=== PATIENT | male | born 1955 | race Caucasian/White ===

== ENCOUNTER 2021-02-06 14:05 | Inpatient (IN) ==
[2021-02-06] MEDS ORDERED: ASPIRIN CHEW 324 MG PO STA (14:27)
[2021-02-06] MEDS ORDERED: SODIUM CHLORIDE 0.9% 500 ML IV STA (14:27)
[2021-02-06] MEDS ORDERED: dilTIAZem HCl 5 MG/ML 5 ML VIAL IV STA ×2 (14:32→14:58)
--- NOTE | 2021-02-06 14:48 | Emergency Department Note ---
Impression & Plan Chest pain, Atrial fibrillation with rapid ventricular response, Abnormal EKG, Acute hypotension ED Provider Note NAME: ZACH TEMPLE AGE: 65 SEX: M : 1955 ARRIVES VIA: Walk-In INFORMANT: Patient, ED PROVIDER(S): Kemar Eastman DO CHIEF COMPLAINT: Chest pain HPI: The patient is a 65-year-old male who presented to the emergency department for an evaluation of chest pain. The patient localizes chest pain to his anter ior chest and into both arms. The patient denies having any shortness of breath. He does note lower extremity swelling but this is not new for him. He states that his symptoms began prior to arrival. He has a history of paroxysmal atrial fibrillation and felt that his heart was racing as well. He describes the pain as a pressure. He denies having any lower extremity pain. He does have no history of cough or recent fever. The patient's not been seen by his primary care physician for the symptoms. The patient has been compliant with all of his outpatient medications. He came directly to the emergency department and was not seen by provider prior to coming to the emergency department. ROS: See above HPI for pertinent positives & negatives. A total of 10 systems reviewed and were otherwise negative. PAST MEDICAL HISTORY: See Below PAST SURGICAL HISTORY: See Below FAMILY HISTORY: See Below SOCIAL HISTORY: See Below HOME MEDICATIONS: See Below ALLERGIES: See Below VITALS: See Below PHYSICAL EXAMINATION: GENERAL: The patient is awake and alert. The patient is somewhat anxious appearing but overall comfortable. EYES: The conjunctivae are clear. The pupils are round and reactive. EARS, NOSE, MOUTH AND THROAT: The nose is without any evidence of any deformity. NECK: The neck is nontender and supple. RESPIRATORY: Normal respiratory effort is noted there is no evidence of wheezing rhonchi or rales CARDIOVASCULAR: Tachycardic and irregular heart sounds were noted to auscultation. There is no definite murmur. GASTROINTESTINAL: The abdomen is soft. Abdomen is nontender. MUSCULOSKELETAL/EXTREMITIES: There is no evidence of gross deformity full range of motion is noted in the hips and shoulders. SKIN: Pedal edema was noted bilaterally. Skin was warm and dry. NEUROLOGIC: Patient is awake alert and oriented x3. MEDICAL DECISION MAKING: The patient is a 65-year-old male who presented to the emergency department for an evaluation of chest pain. The patient initially was found to have atrial fibrillation with RVR and ischemic changes on his EKG. The patient was treated with IV fluids as well as IV Cardizem. He was also given aspirin. The patient's rate continued to improve. When his rate improved his ischemic chest pain as well as his ischemic changes on his EKG significantly improved as well. The patient was pain-free on reevaluation. I discussed the patient's laboratory and radiographic studies with him. He was started on a Cardizem drip as well as heparin drip. I discussed his condition with the on-call [facility] broom machine operator as well as the on-call [facility] hospitalist. They have agreed to evaluate the patient for further management and disposition. The patient continued to remain pain-free. Triage Nursing notes reviewed. Prior medical records reviewed Vital Signs: reviewed and remarkable for hypotension and tachycardia. Differential diagnosis: Cardiac ischemia, aortic dissection, pulmonary embolism, pneumothorax, pneumonia, pericarditis, myocarditis, esophageal rupture, GERD, cholecystitis, pancreatitis, musculoskeletal, as well as other pathologies. ER treatment provided: See below Diagnostics interpreted by me: ECG: EKG was obtained in the emergency department. My interpretation is atrial fibrillation at 153 bpm. PVCs were noted. Inferior and lateral ST depressions were noted. This was compared to a tracing from June 262015. Atrial fibrillation as well as the ischemic changes are new compared to earlier tracing. A second EKG was obtained in the emergency department. My interpretation is atrial fibrillation with RVR at 112 bpm. There was no ectopy. Almost complete resolution of the previously noted ST segment depression was appreciated. Cardiac Monitoring: An order was placed for continuous cardiac monitoring. The monitor shows a rate of 75 bpm with atrial fibrillation rhythm. Laboratory studies: As stated above and show below. Imaging studies: See below Consultation(s): 1530: I discussed this case with Dr. Tobias who is on-call for the [facility] cardiology group. 1540: I discussed this case with [place] who is on-call for the [facility] hospitalist group. They will evaluate the patient in the emergency department. ED COURSE: 1500: The patient was reevaluated. Pulse rate had improved and the patient's pain is resolved. Procedures: none PDMP:reviewed and no issues Critical Care: I have personally spent greater than 45 minutes of critical care time in the direct management of this patient. This includes bedside care, interpretation o f diagnostic studies, and testing, discussion with consultants, patient, and family members, and other required patient management activities. This 45 minutes is in excess of all separately billable procedures. Past Med/Surg History Medical History Anxiety CAD (coronary artery disease) Diabetes mellitus, type 2 Diabetic peripheral neuropathy GERD (gastroesophageal reflux disease) Gout History of atrial fibrillation no longer has Hyperlipidemia Hypertension Myocardial Infarction 2009 Sleep apnea cpap Surgical History [place] [facility] [place] of cardiac radiofrequency ablation for A-fib History of heart artery stent --2009 History of repair of left rotator cuff History of total right hip replacement History of wisdom tooth extraction Family History Grandmother (Maternal) Family history of diabetes mellitus Other No family history of adverse response to anesthesia Social History Smoking Status: Former smoker Second Hand Exposure: Yes (family member smoked); Do You Dip or Chew Tobacco: Yes; Hx Alcohol Use: Yes (social) Alcohol type: hard liquor Hx Substance Use: No Preferred Language: Gibraltarian Communication Ability: Effective Back Pad Inspector Required: No Beliefs That Will Affect Care: None Current Living Situation: Spouse and Family Current Living Situation Comment: Lives with and son Other Information That Helps Us Care for You: No Feels Safe at Home: Yes Safety Concerns: Feels Safe At This Time Assistive Devices: CPAP and Glasses Allergies Allergies Allergy/AdvReac Type Severity Reaction Status Date / Time No Known Allergies Allergy Verified 02/06/21 15:23 Home Meds Home Medications Medication Instructions Recorded Confirmed alprazolam 0.5 mg tablet 0.5 mg PO HS PRN 12/12/18 02/06/21 aspirin 81 mg tablet,delayed 81 mg PO QAM 12/12/18 02/06/21 release atorvastatin 20 mg tablet 20 mg PO HS 12/12/18 02/06/21 cyanocobalamin (vitamin B-12) 500 500 mcg PO QAM 12/12/18 02/06/21 mcg lozenges (Vitamin B-12) lisinopril 10 mg tablet 10 mg PO BID 12/12/18 02/06/21 metoprolol succinate 50 mg 50 mg PO QAM 12/12/18 02/06/21 tablet,extended release 24 hr omeprazole 20 mg tablet,delayed 20 mg PO DAILY PRN 12/12/18 02/06/21 release glipizide 5 mg tablet 5 mg PO BID tab 04/29/20 02/06/21 metformin 500 mg tablet 500 mg PO BID tab 04/29/20 02/06/21 allopurinol 300 mg tablet 300 mg PO QAM 02/06/21 02/06/21 bee pollen 1 ea PO QDL 02/06/21 02/06/21 chlorthalidone 25 mg tablet 25 mg PO DAILY 02/06/21 02/06/21 dulaglutide 1.5 mg/0.5 mL 1.5 mg SUBCUT WK 02/06/21 02/06/21 subcutaneous pen injector (Trulicity) ezetimibe 10 mg tablet 10 mg PO HS 02/06/21 02/06/21 gabapentin 100 mg capsule 300 mg PO HS 02/06/21 02/06/21 ibuprofen 200 mg tablet (Advil) 600 mg PO Q6H PRN 02/06/21 02/06/21 pseudoephedrine-ibuprofen 30 2 cap PO DIRECTED PRN 02/06/21 02/06/21 mg-200 mg capsule (Advil Cold and Sinus) tamsulosin 0.4 mg capsule 0.4 mg PO HS 02/06/21 02/06/21 terazosin 5 mg capsule 10 mg PO HS 02/06/21 02/06/21 Results & Data (ED) Vital Signs Vital Signs - 24 hr 02/06/21 14:18 02/06/21 14:44 02/06/21 15:56 Temperature 36.5 C Temperature Source Oral Pulse Rate 136 H Pulse Rate [Finger] 127 H Pulse Rhythm Regular Pulse Strength Normal Respiratory Rate 24 24 Respiratory Effort / Characteristics Non-Labored Spontaneous Respiratory Depth Normal Respiratory Pattern Regular Blood Pressure 94/68 L Blood Pressure [Left Arm] 96/64 L Blood Pressure Mean 76 Blood Pressure Mean [Left Arm] 74 Blood Pressure Position Sitting Pulse Oximetry 97 95 97 Oxygen Delivery Method Room Air Room Air Room Air Sepsis Recent Fever Within 48 Hours No Sepsis New/Unexplained Change in Mental Status No Sepsis Action Taken by Nursing No Action Required 02/06/21 16:30 Temperature Temperature Source Pulse Rate Pulse Rate [Finger] 143 H Pulse Rhythm Pulse Strength Respiratory Rate 20 Respiratory Effort / Characteristics Respiratory Depth Respiratory Pattern Blood Pressure Blood Pressure [Left Arm] 87/70 L Blood Pressure Mean Blood Pressure Mean [Left Arm] 75 Blood Pressure Position Pulse Oximetry 97 Oxygen Delivery Method Room Air Sepsis Recent Fever Within 48 Hours Sepsis New/Unexplained Change in Mental Status Sepsis Action Taken by Long Term Medications Current Medication List: was personally reviewed by me Laboratory Data Attestation: I reviewed the patient's lab results. Result diagrams: 02/06/21 14:34 02/06/21 14:34 Lab Results 02/06/21 02/06/21 02/06/21 Range/Units 14:34 14:34 14:34 WBC 11.21 H (4.8-10.8) K/uL RBC 4.68 L (4.7-6.1) M/uL Hgb 14.1 (14.0-18.0) g/dL Hct 41.9 L (42-52) % MCV 89.5 (80-100) fL MCH 30.1 (25-34) pg MCHC 33.7 (32-36) g/dL RDW Std Deviation 43.1 (36.4-46.3) fL RDW Coeff of Se[place]our 13.2 (11.5-14.5) % Plt Count 347 (130-400) K/uL MPV 10.0 (7.4-10.4) fL Immature Gran % (Auto) 0.5 % Neut % (Auto) 67.2 % Lymph % (Auto) 21.5 % Harrison % (Auto) 5.2 % Eos % (Auto) 5.0 % Baso % (Auto) 0.6 % Neut # (Auto) 7.53 H (1.4-6.5) K/uL Lymph # (Auto) 2.41 (1.2-3.4) K/uL Harrison # (Auto) 0.58 (0.11-0.59) K/uL Eos # (Auto) 0.56 H (0-0.5) K/uL Baso # (Auto) 0.07 (0-0.2) K/uL Immature Gran # (Auto) 0.06 H (0.00-0.02) K/uL PT 9.9 (9.0-12.0) Seconds INR 1.0 (0.9-1.1) APTT 27.3 (21.0-31.0) Seconds PTT Ratio 1.0 Sodium 134 L (136-145) mmol/L Potassium 4.5 (3.5-5.1) mmol/L Chloride 100 (98-107) mmol/L Carbon Dioxide 26 (21-32) mmol/L Anion Gap 8.0 (3-11) BUN 22 H (7-18) mg/dl Creatinine 1.13 (0.6-1.4) mg/dl Est Cr Clr Drug Dosing 84.8 ml/min Est GFR ( Amer) 79.2 ml/min Est GFR (Non-Af Amer) 68.3 ml/min BUN/Creatinine Ratio 19.0 (10-20) Glucose 263 H (70-99) mg/dl Calcium 9.0 (8.5-10.1) mg/dl Magnesium 1.5 L (1.8-2.4) mg/dl Total Bilirubin 1.0 (0.2-1) mg/dl AST 31 (15-37) U/L ALT 39 (12-78) U/L Alkaline Phosphatase 89 (45-117) U/L Troponin I < 0.015 (0-0.045) ng/ml Total Protein 7.4 (6.4-8.2) gm/dl Albumin 3.8 (3.4-5.0) gm/dl Globulin 3.6 (2.5-4.0) gm/dl Albumin/Globulin Ratio 1.1 (0.9-2) Lipase 161 (73-393) U/L TSH 2.310 (0.300-4.500) uIu/ml Specimen Hemolysis COVID-19 Eval Order SARS-CoV-2 (PCR) (Negative) 02/06/21 02/06/21 Range/Units 14:44 14:44 WBC (4.8-10.8) K/uL RBC (4.7-6.1) M/uL Hgb (14.0-18.0) g/dL Hct (42-52) % MCV (80-100) fL MCH (25-34) pg MCHC (32-36) g/dL RDW Std Deviation (36.4-46.3) fL RDW Coeff of Seymour (11.5-14.5) % Plt Count (130-400) K/uL MPV (7.4-10.4) fL Immature Gran % (Auto) % Neut % (Auto) % Lymph % (Auto) % Harrison % (Auto) % Eos % (Auto) % Baso % (Auto) % Neut # (Auto) (1.4-6.5) K/uL Lymph # (Auto) (1.2-3.4) K/uL Harrison # (Auto) (0.11-0.59) K/uL Eos # (Auto) (0-0.5) K/uL Baso # (Auto) (0-0.2) K/uL Immature Gran # (Auto) (0.00-0.02) K/uL PT (9.0-12.0) Seconds INR (0.9-1.1) APTT (21.0-31.0) Seconds PTT Ratio Sodium (136-145) mmol/L Potassium (3.5-5.1) mmol/L Chloride (98-107) mmol/L Carbon Dioxide (21-32) mmol/L Anion Gap (3-11) BUN (7-18) mg/dl Creatinine (0.6-1.4) mg/dl Est Cr Clr Drug Dosing ml/min Est GFR ( Amer) ml/min Est GFR (Non-Af Amer) ml/min BUN/Creatinine Ratio (10-20) Glucose (70-99) mg/dl Calcium (8.5-10.1) mg/dl Magnesium (1.8-2.4) mg/dl Total Bilirubin (0.2-1) mg/dl AST (15-37) U/L ALT (12-78) U/L Alkaline Phosphatase (45-117) U/L Troponin I (0-0.045) ng/ml Total Protein (6.4-8.2) gm/dl Albumin (3.4-5.0) gm/dl Globulin (2.5-4.0) gm/dl Albumin/Globulin Ratio (0.9-2) Lipase (73-393) U/L TSH (0.300-4.500) uIu/ml Specimen Hemolysis COVID-19 Eval Order Covid19 at [facility] SARS-CoV-2 (PCR) NEGATIVE (Negative) Administered Medications Atorvastatin Calcium (Atorvastatin 20 Mg Tab) 20 mg PO HS [place] Stop: 03/08/21 20:59 Last Admin: 02/06/21 21:40 Dose: 20 mg Documented by: [id number] Ezetimibe (Ezetimibe 10 Mg Tablet) 10 mg PO HS [place] Stop: 03/08/21 20:59 Last Admin: 02/06/21 21:40 Dose: 10 mg Documented by: [id number] Gabapentin (Gabapentin 300 Mg Cap) 300 mg PO HS [place] Stop: 03/08/21 20:59 Last Admin: 02/06/21 21:40 Dose: 300 mg Documented by: [id number] Diltiazem HCl 125 mg/ Dextrose 125 mls @ 0 mls/hr IV .Q0M [place]; Protocol Stop: 03/08/21 15:29 Last Titration: 02/06/21 19:09 Dose: 0 mg/hr, 0 mls/hr Documented by: [id number] Cosigned by: [id number] Admin: 02/06/21 16:26 Dose: 5 mg/hr, 5 mls/hr Documented by: [id number] Cosigned by: [id number] Heparin Sodium/Dextrose (Heparin Sodium/Dextrose) 25,000 units in 500 mls @ 33 mls/hr IV .[id number] [place]; Protocol Stop: 03/08/21 15:59 Last Titration: 02/06/21 19:09 Dose: 1,650 units/hr, 33 mls/hr Documented by: [id number] Cosigned by: [id number] Admin: 02/06/21 15:51 Dose: 1,650 units/hr, 33 mls/hr Documented by: [id number] Cosigned by: [id number] Insulin Aspart (Insulin Aspart 100 Units/Ml 3 Ml Pen) 0 units SC ACHS [place] Stop: 03/08/21 20:59 Last Admin: 02/06/21 21:41 Dose: 7 units Documented by: [id number] Cosigned by: [id number] Tamsulosin HCl (Tamsulosin Hcl 0.4 Mg Cap) 0.4 mg PO HS [place] Stop: 03/08/21 20:59 Last Admin: 02/06/21 21:40 Dose: 0.4 mg Documented by: [id number] Terazosin HCl (Terazosin Hcl 5 Mg Cap) 10 mg PO HS [place] Stop: 03/08/21 20:59 Last Admin: 02/06/21 21:40 Dose: 10 mg Documented by: [id number] Discontinued Medications Aspirin (Aspirin Chew 324 Mg) 324 mg PO NOW STA Stop: 02/06/21 14:28 Last Admin: 02/06/21 14:39 Dose: 324 mg Documented by: [id number] Diltiazem HCl (Diltiazem Hcl 5 Mg/Ml 5 Ml Vial) 10 mg IV NOW STA Stop: 02/06/21 14:33 Last Admin: 02/06/21 14:40 Dose: 10 mg Documented by: [id number] Cosigned by: [id number] Diltiazem HCl (Diltiazem Hcl 5 Mg/Ml 5 Ml Vial) 10 mg IV NOW STA Stop: 02/06/21 14:59 Last Admin: 02/06/21 15:10 Dose: 10 mg Documented by: [id number] Cosigned by: [id number] Heparin Sodium (Porcine) (Heparin Sod (Porcine) 1000 Unit/Ml) 1 units IV NOW ONE Stop: 02/06/21 15:48 Last Admin: 02/06/21 15:51 Dose: 5,000 units Documented by: [id number] Cosigned by: [id number] Heparin Sodium/Dextrose (Heparin Iv Adult Wt-Based Standard With Bolus Protocol) 1 ea IV NOW STA; Protocol Stop: 02/06/21 15:33 Last Admin: 02/06/21 18:47 Dose: Not Given Documented by: [id number] Sodium Chloride (Nss) 500 mls @ 999 mls/hr IV .Q31M STA Stop: 02/06/21 14:57 Last Infusion: 02/06/21 15:11 Dose: 0 mls/hr Documented by: [id number] Admin: 02/06/21 14:40 Dose: 999 mls/hr Documented by: [id number] Sodium Chloride (Nss) 500 mls @ 999 mls/hr IV .Q31M ONE Stop: 02/06/21 15:33 Last Infusion: 02/06/21 15:40 Dose: 0 mls/hr Documented by: [id number] Admin: 02/06/21 15:09 Dose: 999 mls/hr Documented by: [id number] Magnesium Sulfate/Dextrose (Magnesium Sulfate / D5w) 1 gm in 100 mls @ 100 mls/hr IV Q1H [place] Stop: 02/06/21 17:27 Last Infusion: 02/06/21 18:46 Dose: 0 mls/hr Documented by: [id number] Admin: 02/06/21 16:49 Dose: 100 mls/hr Documented by: [id number] Infusion: 02/06/21 16:49 Dose: 0 mls/hr Documented by: [id number] Admin: 02/06/21 15:43 Dose: 100 mls/hr Documented by: [id number] Sodium Chloride (Nss 1000ml) 500 mls @ 999 mls/hr IV .Q31M ONE Stop: 02/06/21 16:00 Last Infusion: 02/06/21 16:15 Dose: 0 mls/hr Documented by: [id number] Admin: 02/06/21 15:44 Dose: 999 mls/hr Documented by: [id number] Miscellaneous (Stat Iv Infusion Titration Per Protocol) 1 ea N/A NOW STA Stop: 02/06/21 15:29 Last Admin: 02/06/21 18:47 Dose: Not Given Documented by: [id number] Imaging Data Radiologist's Impression: Chest X-Ray 02/06/21 14:27 XR chest 1V portable HISTORY: 65 years-old Male Chest Pain . Acute atypical chest pain COMPARISON: Chest radiograph 06/26/2015 TECHNIQUE: AP view of the chest FINDINGS: Cardiomediastinal and hilar silhouettes are within normal limits. No pneumothorax, pleural effusion, airspace consolidation or overt pulmonary edema. Degenerative changes of the shoulders and spine. IMPRESSION: No acute process. ACT 112: Negative or not required by law. The above report was generated using voice recognition software. It may contain grammatical, syntax or spelling errors. Electronically signed by: Zach Mendosa M.D. 02/06/2021 2:52 PM Discharge Plan Visit Data Chief Complaint: Chest Pain Stated Complaint: CHEST PAIN ED Provider: Kemar Eastman Discharge Problem: Chest pain, Atrial fibrillation with rapid ventricular response, Abnormal EKG, Acute hypotension Patient Disposition: Admitted As Inpatient Condition: Good Discharge Instructions Interventions: ED Discharge Assessment Last Done: 02/06/21 17:49 Discharge Problem: Chest pain Qualifiers: Chest pain type: unspecified Qualified Code(s): R07.9 - Chest pain, unspecified
--- NOTE | 2021-02-06 14:53 | XRay Report ---
XR chest 1V portable HISTORY: 65 years-old Male Chest Pain . Acute atypical chest pain COMPARISON: Chest radiograph 06/26/2015 TECHNIQUE: AP view of the chest FINDINGS: Cardiomediastinal and hilar silhouettes are within normal limits. No pneumothorax, pleural effusion, airspace consolidation or overt pulmonary edema. Degenerative changes of the shoulders and spine. IMPRESSION: No acute process. ACT 112: Negative or not required by law. The above report was generated using voice recognition software. It may contain grammatical, syntax o r spelling errors. Electronically signed by: Zach Mendosa M.D. 02/06/2021 2:52 PM
[2021-02-06 15:02] LABS: Basophils # (auto) 0.07 K/uL (0-0.2); Basophils % (auto) 0.6 %; Eosinophils # (auto) 0.56 K/uL (0-0.5); Hematocrit (blood only) 41.9 % (42-52); Hemoglobin 14.1 g/dL (14.0-18.0); Immature Granulocytes # (auto) 0.06 K/uL (0.00-0.02); Immature Granulocytes % (auto) 0.5 %; Lymphocytes # (auto) 2.41 K/uL (1.2-3.4); Lymphocytes % (auto) 21.5 %; Mean Corpuscular Hemoglobin 30.1 pg (25-34); Mean Corpuscular Hgb Conc 33.7 g/dL (32-36); Mean Corpuscular Volume 89.5 fL (80-100); Monocytes # (auto) 0.58 K/uL (0.11-0.59); Monocytes % (auto) 5.2 %; Neutrophils # (auto) 7.53 K/uL (1.4-6.5); Neutrophils % (auto) 67.2 %; Platelet Count 347 K/uL (130-400); RDW Coefficient of Variation 13.2 % (11.5-14.5); RDW Standard Deviation 43.1 fL (36.4-46.3); Red Blood Count 4.68 M/uL (4.7-6.1); White Blood Count 11.21 K/uL (4.8-10.8)
[2021-02-06] MEDS ORDERED: SODIUM CHLORIDE 0.9% 500 ML IV ONE (15:03)
[2021-02-06 15:09] LABS: Partial Thromboplastin Time 27.3 Seconds (21.0-31.0); Prothrombin Time 9.9 Seconds (9.0-12.0)
[2021-02-06 15:18] LABS: Alanine Aminotransferase 39 U/L (12-78); Albumin Level 3.8 gm/dl (3.4-5.0); Aspartate Aminotransferase 31 U/L (15-37); Blood Urea Nitrogen 22 mg/dl (7-18); Carbon Dioxide 26 mmol/L (21-32); Chloride 100 mmol/L (98-107); Creatinine Clr Calc Pharmacy 84.8 ml/min; Est GFR (African American) 79.2 ml/min; Est GFR (Non-African American) 68.3 ml/min; Glucose 263 mg/dl (70-99); Lipase 161 U/L (73-393); Magnesium 1.5 mg/dl (1.8-2.4); Potassium 4.5 mmol/L (3.5-5.1); Sodium 134 mmol/L (136-145)
[2021-02-06 15:28] LABS: Albumin Globulin Ratio 1.1 (0.9-2); Alkaline Phosphatase 89 U/L (45-117); Globulin 3.6 gm/dl (2.5-4.0); Total Protein 7.4 gm/dl (6.4-8.2); Troponin I < 0.015 ng/ml (0-0.045)
[2021-02-06] MEDS ORDERED: STAT IV Infusion **Titration per Protocol STA (15:28)
[2021-02-06] MEDS ORDERED: SODIUM CHLORIDE 0.9% 1000ML 500 ML IV ONE (15:30)
[2021-02-06] MEDS ORDERED: dilTIAZem HCL 125 MG in DEXTROSE 5% 100 ML IV SCH (15:30)
[2021-02-06] MEDS ORDERED: Heparin IV Adult Wt-Based Standard WITH Bolus Protocol IV STA (15:32)
[2021-02-06] MEDS: MAGNESIUM SULFATE / D5W 1 GM/100 ML BAG IV SCH ×2 (15:43→16:49)
[2021-02-06] MEDS ORDERED: HEPARIN SOD (PORCINE) 1000 UNIT/ML IV ONE (15:47)
[2021-02-06] MEDS: HEPARIN SODIUM/DEXTROSE 25,000 UNITS/500 ML BAG IV SCH (15:51)
[2021-02-06] MEDS ORDERED: GLUCAGON FOR INJ 1 MG VIAL SQ PRN (16:54)
[2021-02-06] MEDS ORDERED: GLUCOSE 40% GEL 15 GM TUBE PO PRN (16:54)
[2021-02-06] MEDS ORDERED: CARBOHYDRATES FOR HYPOGLYCEMIA PO PRN (16:54)
[2021-02-06] MEDS ORDERED: GLUCOSE 10 TABS/TUBE PO PRN (16:54)
[2021-02-06] MEDS ORDERED: DEXTROSE 50% 50 ML SYRINGE IV PRN (16:54)
--- NOTE | 2021-02-06 18:05 | History & Physical Report ---
Date of Service February 06, 2021 Assessment & Plan (1) Chest pain: Plan: Likely due to transient ischemia related to afib with RVR - symptoms resolved with improvement in rate - Monitor on telemetry - repeat EKG in AM and prn for recurrent CP - Trend troponin - Cardio consult (2) Atrial fibrillation with rapid ventricular response: Plan: - Continue cardizem gtt for now but will need to continue to monitor BP closely - may need to consider alternative for rate control - Heparin gtt - Consult cardiology for additional recommendations for rate control (3) GERD (gastroesophageal reflux disease): Plan: On PPI PRN outpatient - will dose daily while admitted (4) Sleep apnea: Plan: to bring in CPAP from home for pt to use (5) DM type 2 (diabetes mellitus, type 2): Plan: - Hold outpatient meds - start insulin sliding scale - Diabetic diet - Accuchecks ACHS - A1c in AM (6) Dyslipidemia: Plan: - Continue statin and Zetia (7) Hypertension: Plan: See plan for #2 - current BP is low on cardizem gtt so will hold chlorthalidone and lisinopril (8) Diabetic peripheral neuropathy: Plan: - Continue gabapentin (9) CAD (coronary artery disease): Plan: See plan for #1 Plan: Pt seen and reviewed with attending physician, Dr. Mark. Plan of care discuss ed and as outlined above. Please see his note for additional information. Pt's was updated at the bedside. Both the pt and his had multiple questions regarding the plan of care, all of which were answered to their satisfaction. Code Status: Full Code DVT Prophylaxis: on heparin gtt for atrial fibrillation Surya Galan PA-C History of Present Illness Chief Complaint: Chest pain Primary Care Provider: Rudy Handy MD This is a 65 y/o male with a PMH of atrial fibrillation s/p ablation in 2016, CAD w/ hx of GA in 2010, FAUSTO on CPAP, dyslipidemia, GERD, HTN, DM2 with associated peripheral neuropathy, gout, and BPH who presented to the ED today with chest pain. He reports that when he woke up today he felt perfectly fine, went to work and worked all morning, then went to [employer] for lunch. After eating, he develop substernal chest pressure with associated bilateral arm achiness. Associated extreme fatigue and diaphoresis but denies shortness of breath, palpitations, or dizziness. He tried taking nitro x 2 (he does report that they were 6 years old) but noted no relief of symptoms within about 20 minutes so he decided to come to the ED for evaluation. He had similar arm achiness but not as severe with his first GA. Prior symptoms of afib with RVR with always palpitations - he denies having chest pressure like this previously. In the ED, he was given cardizem and ultimately started on a cardizem gtt with improvement in the rate. Once the rate improved, he noted complete resolution of the chest pressure and arm achiness. Currently, he is feeling well on the cardizem gtt. Allergies Allergy/AdvReac Type Severity Reaction Status Date / Time No Known Allergies Allergy Verified 02/06/21 15:23 Home Medications Medication Instructions Recorded Confirmed Type alprazolam 0.5 mg tablet 0.5 mg PO HS PRN 12/12/18 02/06/21 History aspirin 81 mg tablet,delayed 81 mg PO QAM 12/12/18 02/06/21 History release atorvastatin 20 mg tablet 20 mg PO HS 12/12/18 02/06/21 History cyanocobalamin (vitamin B-12) 500 500 mcg PO QAM 12/12/18 02/06/21 History mcg lozenges (Vitamin B-12) lisinopril 10 mg tablet 10 mg PO BID 12/12/18 02/06/21 History metoprolol succinate 50 mg 50 mg PO QAM 12/12/18 02/06/21 History tablet,extended release 24 hr omeprazole 20 mg tablet,delayed 20 mg PO DAILY PRN 12/12/18 02/06/21 History release glipizide 5 mg tablet 5 mg PO BID tab 04/29/20 02/06/21 History metformin 500 mg tablet 500 mg PO BID tab 04/29/20 02/06/21 History allopurinol 300 mg tablet 300 mg PO QAM 02/06/21 02/06/21 History bee pollen 1 ea PO QDL 02/06/21 02/06/21 History chlorthalidone 25 mg tablet 25 mg PO DAILY 02/06/21 02/06/21 History dulaglutide 1.5 mg/0.5 mL 1.5 mg SUBCUT WK 02/06/21 02/06/21 History subcutaneous pen injector (Trulicity) ezetimibe 10 mg tablet 10 mg PO HS 02/06/21 02/06/21 History gabapentin 100 mg capsule 300 mg PO HS 02/06/21 02/06/21 History ibuprofen 200 mg tablet (Advil) 600 mg PO Q6H PRN 02/06/21 02/06/21 History pseudoephedrine-ibuprofen 30 2 cap PO DIRECTED PRN 02/06/21 02/06/21 History mg-200 mg capsule (Advil Cold and Sinus) tamsulosin 0.4 mg capsule 0.4 mg PO HS 02/06/21 02/06/21 History terazosin 5 mg capsule 10 mg PO HS 02/06/21 02/06/21 History Past Med/Surg History Medical History Anxiety CAD (coronary artery disease) Diabetes mellitus, type 2 Diabetic peripheral neuropathy GERD (gastroesophageal reflux disease) Gout History of atrial fibrillation no longer has Hyperlipidemia Hypertension Myocardial Infarction 2009 Sleep apnea cpap Surgical History [place] [facility] [place] of cardiac radiofrequency ablation for A-fib History of heart artery stent --2009 History of repair of left rotator cuff History of total right hip replacement History of wisdom tooth extraction Family History Grandmother (Maternal) Family history of diabetes mellitus Other No family history of adverse response to anesthesia Social History Smoking Status: Former smoker Second Hand Exposure: Yes (family member smoked); Do You Dip or Chew Tobacco: Yes; Hx Alcohol Use: Yes (social EtOH and red wine) Alcohol type: hard liquor Hx Substance Use: No Preferred Language: Bolivian Communication Ability: Effective Tax Services Professional Required: No Beliefs That Will Affect Care: None Current Living Situation: Spouse and Family Current Living Situation Comment: Lives with and son Feels Safe at Home: Yes Assistive Devices: CPAP, Glasses and Hearing Aid - Bilateral Review of Systems Review of Systems: All systems reviewed & are unremarkable except as noted in HPI & below Constitutional: + sweats and + fatigue; no fever and no chills Eyes: no diplopia Ear, Nose, Mouth, Throat: no nasal congestion, no nasal discharge, no sore throat and no dysphagia Respiratory: no cough, no dyspnea and no wheezing Cardiovascular: as per Subjective / HPI Gastrointestinal: + diarrhea/loose stools (recent stomach bug ~10 days ago - symptoms now resolved); no abdominal pain, no nausea and no vomiting Genitourinary: no dysuria or no hematuria Musculoskeletal: no back pain, no neck pain and no muscle weakness Integumentary: no rash and no skin ulcer Neurologic: no seizure-like activity, no dizziness, no syncope, no headache(s) and no confusion Psychiatric: no depression and no anxiety Physical Exam Constitutional: WD/WN, vitals as above Eyes: + anicteric sclerae Neck: trachea midline Respiratory: no respiratory distress and does not use accessory muscles Auscultation: lungs clear to auscultation bilaterally; no rales, no rhonchi and no wheezes Cardiovascular: Rate/Rhythm: + tachycardic and + irregularly irregular Vessels: dorsalis pedis pulses present and radial pulses present Extremities: + edema (trace to 1+ LE edema) Gastrointestinal (Abdomen): Inspection/Auscultation: normal bowel sounds; abdomen not distended Percussion/Palpation: abdomen soft; abdomen nontender Musculoskeletal: Head/Neck/Chest: normocephalic, head atraumatic and neck supple Skin: normal turgor; no jaundice Neurologic: moves all extremities; no focal motor deficits and not confused Psychiatric: A+Ox3, euthymic affect Results & Data Results & Data ([facility]) Vital Signs (Past 12 Hours) Vital Signs Temp Pulse Pulse Resp BP BP Pulse Ox 02/06/21 17:01 126 H 20 92/63 L 97 02/06/21 16:30 143 H 20 87/70 L 97 02/06/21 15:56 127 H 24 96/64 L 97 02/06/21 14:44 95 02/06/21 14:18 36.5 C 136 H 24 94/68 L 97 Laboratory Results Laboratory Results - last 24 hr 02/06/21 02/06/21 02/06/21 14:34 14:34 14:34 WBC 11.21 H RBC 4.68 L Hgb 14.1 Hct 41.9 L MCV 89.5 MCH 30.1 MCHC 33.7 RDW Std Deviation 43.1 RDW Coeff of [place] 13.2 Plt Count 347 MPV 10.0 Immature Gran % (Auto) 0.5 Neut % (Auto) 67.2 Lymph % (Auto) 21.5 [place]in[place] % (Auto) 5.2 Eos % (Auto) 5.0 Baso % (Auto) 0.6 Neut # (Auto) 7.53 H Lymph # (Auto) 2.41 [place]inole # (Auto) 0.58 Eos # (Auto) 0.56 H Baso # (Auto) 0.07 Immature Gran # (Auto) 0.06 H PT 9.9 INR 1.0 APTT 27.3 PTT Ratio 1.0 Sodium 134 L Potassium 4.5 Chloride 100 Carbon Dioxide 26 Anion Gap 8.0 BUN 22 H Creatinine 1.13 Est Cr Clr Drug Dosing 84.8 Est GFR ( Amer) 79.2 Est GFR (Non-Af Amer) 68.3 BUN/Creatinine Ratio 19.0 Glucose 263 H Calcium 9.0 Magnesium 1.5 L Total Bilirubin 1.0 AST 31 ALT 39 Alkaline Phosphatase 89 Troponin I < 0.015 Total Protein 7.4 Albumin 3.8 Globulin 3.6 Albumin/Globulin Ratio 1.1 Lipase 161 TSH 2.310 Specimen Hemolysis COVID-19 Eval Order SARS-CoV-2 (PCR) 02/06/21 02/06/21 14:44 14:44 WBC RBC Hgb Hct MCV MCH MCHC RDW Std Deviation RDW Coeff of Seymour Plt Count MPV Immature Gran % (Auto) Neut % (Auto) Lymph % (Auto) Seminole % (Auto) Eos % (Auto) Baso % (Auto) Neut # (Auto) Lymph # (Auto) [place]in[place] # (Auto) Eos # (Auto) Baso # (Auto) Immature Gran # (Auto) PT INR APTT PTT Ratio Sodium Potassium Chloride Carbon Dioxide Anion Gap BUN Creatinine Est Cr Clr Drug Dosing Est GFR ( Amer) Est GFR (Non-Af Amer) BUN/Creatinine Ratio Glucose Calcium Magnesium Total Bilirubin AST ALT Alkaline Phosphatase Troponin I Total Protein Albumin Globulin Albumin/Globulin Ratio Lipase TSH Specimen Hemolysis COVID-19 Eval Order Covid19 at [facility] SARS-CoV-2 (PCR) NEGATIVE Diagnostic Findings Chest X-ray 02/06/21 - IMPRESSION: No acute process. Medications Administered Diltiazem HCl 125 mg/ Dextrose 125 mls @ 5 mls/hr IV .Q24H [place]; Protocol Stop: 03/08/21 15:29 Last Admin: 02/06/21 16:26 Dose: 5 mg/hr, 5 mls/hr Documented by: [id number] Cosigned by: [id number] Heparin Sodium/Dextrose (Heparin Sodium/Dextrose) 25,000 units in 500 mls @ 33 mls/hr IV .[id number] [facility]; Protocol Stop: 03/08/21 15:59 Last Admin: 02/06/21 15:51 Dose: 1,650 units/hr, 33 mls/hr Documented by: [id number] Cosigned by: [id number] Discontinued Medications Aspirin (Aspirin Chew 324 Mg) 324 mg PO NOW STA Stop: 02/06/21 14:28 Last Admin: 02/06/21 14:39 Dose: 324 mg Documented by: [id number] Diltiazem HCl (Diltiazem Hcl 5 Mg/Ml 5 Ml Vial) 10 mg IV NOW STA Stop: 02/06/21 14:33 Last Admin: 02/06/21 14:40 Dose: 10 mg Documented by: [id number] Cosigned by: [id number] Diltiazem HCl (Diltiazem Hcl 5 Mg/Ml 5 Ml Vial) 10 mg IV NOW STA Stop: 02/06/21 14:59 Last Admin: 02/06/21 15:10 Dose: 10 mg Documented by: [id number] Cosigned by: [id number] Heparin Sodium (Porcine) (Heparin Sod (Porcine) 1000 Unit/Ml) 1 units IV NOW ONE Stop: 02/06/21 15:48 Last Admin: 02/06/21 15:51 Dose: 5,000 units Documented by: [id number] Cosigned by: [id number] Sodium Chloride (Nss) 500 mls @ 999 mls/hr IV .Q31M STA Stop: 02/06/21 14:57 Last Infusion: 02/06/21 15:11 Dose: 0 mls/hr Documented by: [id number] Admin: 02/06/21 14:40 Dose: 999 mls/hr Documented by: [id number] Sodium Chloride (Nss) 500 mls @ 999 mls/hr IV .Q31M ONE Stop: 02/06/21 15:33 Last Infusion: 02/06/21 15:40 Dose: 0 mls/hr Documented by: [id number] Admin: 02/06/21 15:09 Dose: 999 mls/hr Documented by: [id number] Magnesium Sulfate/Dextrose (Magnesium Sulfate / D5w) 1 gm in 100 mls @ 100 mls/hr IV Q1H [place] Stop: 02/06/21 17:27 Last Admin: 02/06/21 16:49 Dose: 100 mls/hr Documented by: [id number] Infusion: 02/06/21 16:49 Dose: 0 mls/hr Documented by: [id number] Admin: 02/06/21 15:43 Dose: 100 mls/hr Documented by: [id number] Sodium Chloride (Nss 1000ml) 500 mls @ 999 mls/hr IV .Q31M ONE Stop: 02/06/21 16:00 Last Infusion: 02/06/21 16:15 Dose: 0 mls/hr Documented by: [id number] Admin: 02/06/21 15:44 Dose: 999 mls/hr Documented by: [id number] Code Status & VTE Plan VTE Prophylaxis Plan VTE Prophylaxis will be ordered: Yes Supervising Physician Co-Signing Physician Notes 65-year-old gentleman with PMH of PAF s/p PV isolation cryoablation, dyslipidemia with statin intolerance, extensive cardiac history status post a stent, HTN, HLD, GERD on omeprazole, DM type II, gout on allopurinol came in for chest pain that started around 12:30 PM, 01/05, pressure like, radiation to bilateral arms, no radiation to back, abrupt onset at rest. In the ED, he was found in A. fib with RVR [153 bpm] associated with ST depression in anterior leads and T wave inversion in lateral leads. Per patient, this is his first A. fib after ablation in around . Cardiology was consulted. Troponin and CRP negative. Magnesium 1.5. Will be managed in the floor for the following #. A. fib with RVR: Heparin and diltiazem drip; bp low and rate still in 130s might need switch to amio; reached out to Card, awaiting rec. get ECHO updated; TSH wnl. #. Extensive CAD: 09/25/2020 ECHO -EF 60%, minimum concentric LVH, grade 1 diastolic dysfunction. #. Chest pain: trend trops, EKG in AM #. Diabetes type 2: Hold oral agents, SSI with glycemic consult. #. Low blood pressure: Expect to improve with improvement of A. fib RVR; HTN meds with holding parameter. Patient has mild elevation in WBC likely secondary to acute distress. Monitor daily CBC and BMP and magnesium. Upon examination: GENERAL: Alert and oriented x3. NAD, on RA. HEENT: No pallor, no icterus. Pupils equal, round and reactive to light. Oral mucosa moist. NECK: No JVD, no neck masses. HEART: S1 and S2 heard. Afib w/ RVR with rates in 110-130s at bedside RESPIRATORY SYSTEM: Normal AP diameter. No accessory muscle use. No wheezing, no crackles. ABDOMEN: Soft, bowel sounds present, nontender, no distention. CENTRAL NERVOUS SYSTEM: Alert and oriented x3. No facial droop. Speech is clear. Obeys simple commands. Moves extremities. EXTREMITIES: 1+ edema, no erythema seen. I have seen and examined the patient and have discussed the case with the provider above. I agree with the assessment and plan as stated.
[2021-02-06] MEDS ORDERED: ALPRAZolam 0.5 MG TABLET PO PRN (18:17)
[2021-02-06] MEDS ORDERED: METOPROLOL TARTRATE 1 MG/ML VIAL IV STA (18:27)
[2021-02-06] MEDS ORDERED: ATORVASTATIN 20 MG TAB PO SCH (21:00)
[2021-02-06] MEDS ORDERED: TERAZOSIN HCL 5 MG CAP PO SCH (21:00)
[2021-02-06] MEDS ORDERED: EZETIMIBE 10 MG TABLET PO SCH (21:00)
[2021-02-06] MEDS ORDERED: GABAPENTIN 300 MG CAP PO SCH (21:00)
[2021-02-06] MEDS ORDERED: TAMSULOSIN HCL 0.4 MG CAP PO SCH (21:00)
[2021-02-06] MEDS: INSULIN ASPART 100 UNITS/ML 3 ML PEN SC SCH (21:41)
[2021-02-06 22:18] LABS: Magnesium 2.1 mg/dl (1.8-2.4); Partial Thromboplastin Ratio 1.8; Partial Thromboplastin Time 46.4 Seconds (21.0-31.0); Troponin I 0.827 ng/ml (0-0.045)
[2021-02-06] MEDS ORDERED: SODIUM CHLORIDE 0.9% 1000ML 1,000 ML IV ONE (22:39)
[2021-02-07] MEDS: HEPARIN SODIUM/DEXTROSE 25,000 UNITS/500 ML BAG IV SCH (06:06)
[2021-02-07 06:13] LABS: Basophils % (auto) 1.1 %; Eosinophils # (auto) 0.52 K/uL (0-0.5); Eosinophils % (auto) 5.7 %; Hematocrit (blood only) 36.3 % (42-52); Hemoglobin 12.1 g/dL (14.0-18.0); Immature Granulocytes # (auto) 0.06 K/uL (0.00-0.02); Immature Granulocytes % (auto) 0.7 %; Lymphocytes # (auto) 3.13 K/uL (1.2-3.4); Lymphocytes % (auto) 34.5 %; Mean Corpuscular Hemoglobin 29.6 pg (25-34); Mean Corpuscular Hgb Conc 33.3 g/dL (32-36); Mean Corpuscular Volume 88.8 fL (80-100); Mean Platelet Volume 9.7 fL (7.4-10.4); Monocytes # (auto) 0.69 K/uL (0.11-0.59); Monocytes % (auto) 7.6 %; Neutrophils # (auto) 4.57 K/uL (1.4-6.5); Neutrophils % (auto) 50.4 %; Platelet Count 320 K/uL (130-400); RDW Coefficient of Variation 13.3 % (11.5-14.5); RDW Standard Deviation 42.9 fL (36.4-46.3); Red Blood Count 4.09 M/uL (4.7-6.1); White Blood Count 9.07 K/uL (4.8-10.8)
[2021-02-07 06:33] LABS: Partial Thromboplastin Ratio 1.9
[2021-02-07 06:46] LABS: BUN Creatinine Ratio 21.4 (10-20); Calcium 8.2 mg/dl (8.5-10.1); Creatinine Clr Calc Pharmacy 109.4 ml/min; Est GFR (African American) 105.7 ml/min; Est GFR (Non-African American) 91.2 ml/min; Magnesium 1.9 mg/dl (1.8-2.4); Potassium 4.2 mmol/L (3.5-5.1)
[2021-02-07 06:53] LABS: Troponin I 0.824 ng/ml (0-0.045)
[2021-02-07] MEDS ORDERED: MAGNESIUM SULFATE / D5W 1 GM/100 ML BAG IV ONE (08:15)
[2021-02-07] MEDS: INSULIN ASPART 100 UNITS/ML 3 ML PEN SC SCH ×2 (08:16→11:32)
--- NOTE | 2021-02-07 08:43 | Cardiology Consultation ---
Date of Consultation February 07, 2021 Assessment & Plan (1) Atrial fibrillation with rapid ventricular response: (2) Chest pain: (3) Abnormal EKG: (4) CAD (coronary artery disease): (5) Sleep apnea: (6) Hyperlipidemia: (7) Hypertension: (8) Diabetes mellitus, type 2: (9) Heart disease: Pt with hx of paf s/p PVI now with first recurrence in 5 years discussed possible rhythm control strategy with sotalol but patient very anxious for discharge and would prefer to discuss further treatment options with primary military technology manager, Dr. Good will check echo ok to d/c to home with Eliquis 5mg po bid and home dose of metoprolol my office will call to arrange outpatient f/u History of Present Illness Reason for Consultation: A. fib with rapid ventricular response Requesting Physician: [facility] hospitalist group Attending Physician: Felipe Mark MD History of Present Illness 65 yo male with hx of PAF s/p PVI in 2015. Presented to ER with chest discomfort. Noted to have a "twinge like" sensation in his chest at rest. Noted his HR to be elevated and presented to ED. found to be in afib with rvr. Spontaneously converted to sinus rhythm upon arrival to floor. States that he now feels well and is very anxious for discharge. Past medical history as per most recent outpatient cardiology visit: 1. Chronic CAD with BMS to LAD 2009. - stable without exertional angina - Lexiscan nuclear stress test negative for inducible ischemia 11/2018 -preserved LV function per recent echo 2 Paroxysmal atrial fibrillation S/P pulmonary vein isolation, cryoablation an electrophysiologic study 08/13/2015. - No symptomatic recurrence of atrial fibrillation since procedure. - 48 hour Holter (12/08/2015) demonstrated no recurrence of atrial fibrillation -ZIO monitor without recurrent afib (09/16) 3. HTN - controlled 4. Dyslipidemia goal LDL less than 70 mg/dL - controlled 5. Obesity with FAUSTO - tolerating CPAP 6. Tobacco abuse (snuff) 7. DM-2 : Improved glycemic control (HbA1C 7.6%) with addition of Trulicity Allergies Allergy/AdvReac Type Severity Reaction Status Date / Time No Known Allergies Allergy Verified 02/06/21 15:23 Home Medications Medication Instructions Recorded Confirmed Type alprazolam 0.5 mg tablet 0.5 mg PO HS PRN 12/12/18 02/06/21 History aspirin 81 mg tablet,delayed 81 mg PO QAM 12/12/18 02/06/21 History release atorvastatin 20 mg tablet 20 mg PO HS 12/12/18 02/06/21 History cyanocobalamin (vitamin B-12) 500 500 mcg PO QAM 12/12/18 02/06/21 History mcg lozenges (Vitamin B-12) lisinopril 10 mg tablet 10 mg PO BID 12/12/18 02/06/21 History metoprolol succinate 50 mg 50 mg PO QAM 12/12/18 02/06/21 History tablet,extended release 24 hr omeprazole 20 mg tablet,delayed 20 mg PO DAILY PRN 12/12/18 02/06/21 History release glipizide 5 mg tablet 5 mg PO BID tab 04/29/20 02/06/21 History metformin 500 mg tablet 500 mg PO BID tab 04/29/20 02/06/21 History allopurinol 300 mg tablet 300 mg PO QAM 02/06/21 02/06/21 History bee pollen 1 ea PO QDL 02/06/21 02/06/21 History chlorthalidone 25 mg tablet 25 mg PO DAILY 02/06/21 02/06/21 History dulaglutide 1.5 mg/0.5 mL 1.5 mg SUBCUT WK 02/06/21 02/06/21 History subcutaneous pen injector (Trulicity) ezetimibe 10 mg tablet 10 mg PO HS 02/06/21 02/06/21 History gabapentin 100 mg capsule 300 mg PO HS 02/06/21 02/06/21 History ibuprofen 200 mg tablet (Advil) 600 mg PO Q6H PRN 02/06/21 02/06/21 History pseudoephedrine-ibuprofen 30 2 cap PO DIRECTED PRN 02/06/21 02/06/21 History mg-200 mg capsule (Advil Cold and Sinus) tamsulosin 0.4 mg capsule 0.4 mg PO HS 02/06/21 02/06/21 History terazosin 5 mg capsule 10 mg PO HS 02/06/21 02/06/21 History Patient History Medical History Anxiety CAD (coronary artery disease) Diabetes mellitus, type 2 Diabetic peripheral neuropathy GERD (gastroesophageal reflux disease) Gout History of atrial fibrillation no longer has Hyperlipidemia Hypertension Myocardial Infarction 2010 Sleep apnea cpap Surgical History [place] [facility] [place] of cardiac radiofrequency ablation for A-fib History of heart artery stent 1--2009 History of repair of left rotator cuff History of total right hip replacement History of wisdom tooth extraction Family History Grandmother (Maternal) Family history of diabetes mellitus Other No family history of adverse response to anesthesia Social History Smoking Status: Former smoker Second Hand Exposure: Yes (family member smoked); Do You Dip or Chew Tobacco: Yes; Hx Alcohol Use: Yes (social) Alcohol type: hard liquor Hx Substance Use: No Preferred Language: Burmese Communication Ability: Effective Public Speaking Coach Required: No Beliefs That Will Affect Care: None Current Living Situation: Spouse and Family Current Living Situation Comment: Lives with and son Other Information That Helps Us Care for You: No Feels Safe at Home: Yes Safety Concerns: Feels Safe At This Time Assistive Devices: CPAP and Glasses Review of Systems Review of Systems: All systems reviewed & are unremarkable except as noted in HPI & below Physical Exam Physical Exam: Physical Exam: General: Awake, alert and oriented x 3. No acute distress. HEENT: Normocephalic, atraumatic. Pupils equal, round and reactive to light and accommodation. Extraocular muscles are intact. Anicteric sclera. Moist mucous membranes. Neck: No JVD. No bruit. Cardiovascular: Regular. No S-4. Normal S-1 and S-2. No S-3. No murmurs, rubs or gallops. Pulmonary: Clear to auscultation bilaterally. No rales, rhonchi, or wheezing. Abdomen: Bowel sounds x 4, soft. No rebound, guarding or tenderness. No organomegaly. Extremities: No clubbing, cyanosis or edema. +2 pedal pulses bilaterally. Skin: Warm and dry. Results & Data ([facility]) Vital Signs (Past 12 Hours) Vital Signs Temp Pulse Pulse Pulse Resp BP Pulse Ox 02/07/21 08:00 36.8 C 78 18 132/73 96 02/07/21 05:19 36.6 C 73 12 125/63 97 02/06/21 23:30 77 02/06/21 22:35 36.6 C 75 18 93/57 L 97 (1) Chest pain Chest pain type: unspecified Qualified Code(s): R07.9 - Chest pain, unspecified
[2021-02-07] MEDS ORDERED: allopurinoL 300 MG TAB PO SCH (09:00)
[2021-02-07] MEDS ORDERED: ASPIRIN 81 MG ECTAB PO SCH (09:00)
[2021-02-07] MEDS ORDERED: METOPROLOL SUCC 50MG EXT REL TAB PO SCH (09:00)
[2021-02-07] MEDS ORDERED: CYANOCOBALAMIN 500 MCG TABLET (VITAMIN B-12) PO SCH (09:00)
--- NOTE | 2021-02-07 09:29 | Electrocardiogram Report ---
Test Reason : Blood Pressure : / mmHG Vent. Rate : 153 BPM Atrial Rate : 056 BPM P-R Int : 000 ms QRS Dur : 090 ms QT Int : 308 ms P-R-T Axes : 000 016 099 degrees QTc Int : 491 ms Atrial fibrillation with rapid ventricular response with premature ventricular or aberrantly conducte d complexes Marked ST depression, consider subendocardial injury in the anterolateral leads Abnormal ECG When compared with ECG of 26-JUN-2015 02:18, Atrial fibrillation has replaced Sinus rhythm Vent. rate has increased BY [address] now depressed in Inferior leads ST now depressed in Anterolateral leads T wave inversion now evident in Lateral leads Confirmed by Immanuel Minor ([id number]) on 02/07/2021 9:28:40 AM Referred By: REFERRED SELF Confirmed By:Immanuel Minor
--- NOTE | 2021-02-07 09:30 | Electrocardiogram Report ---
Test Reason : Blood Pressure : / mmHG Vent. Rate : 112 BPM Atrial Rate : 100 BPM P-R Int : 000 ms QRS Dur : 088 ms QT Int : 344 ms P-R-T Axes : 000 018 072 degrees QTc Int : 469 ms Atrial fibrillation with rapid ventricular response Abnormal ECG When compared with ECG of 06-FEB-2021 14:18, (unconfirmed) The marked ST/T changes have resolved Confirmed by Immanuel Minor ([id number]) on 02/07/2021 9:29:39 AM Referred By: REFERRED SELF Confirmed By:Immanuel Minor
--- NOTE | 2021-02-07 10:02 | Electrocardiogram Report ---
Test Reason : Blood Pressure : / mmHG Vent. Rate : 068 BPM Atrial Rate : 068 BPM P-R Int : 154 ms QRS Dur : 086 ms QT Int : 430 ms P-R-T Axes : 038 038 074 degrees QTc Int : 457 ms Normal sinus rhythm Normal ECG When compared with ECG of 06-FEB-2021 15:24, (unconfirmed) Sinus rhythm has replaced Atrial fibrillation Vent. rate has decreased BY 44 BPM Confirmed by Immanuel Minor ([id number] on 02/07/2021 10:01:59 AM Referred By: REFERRED SELF Confirmed By:Immanuel Minor
[2021-02-08 07:24] LABS: Estimated Average Glucose 183 mg/dl
== END 2021-02-07 13:52 | disposition home or self-care (01) | DRG 310 ==
LOC: ED 14:05 → 2S 16:54

== ENCOUNTER 2021-10-18 01:07 | Inpatient (IN) ==
[2021-10-18] MEDS ORDERED: NITROGLYCERIN 2% OINTMENT 30GM TUBE EXT ONE (01:19)
[2021-10-18] MEDS ORDERED: ASPIRIN 81 MG CHEW PO STA (01:20)
[2021-10-18] MEDS ORDERED: ASPIRIN CHEW 324 MG PO STA (01:27)
--- NOTE | 2021-10-18 01:40 | Emergency Department Note ---
ED Provider Note CHIEF COMPLAINT: Chest pain HISTORY OF PRESENT ILLNESS: This 66 yo male patient presents to the emergency department with complaints of substernal chest pain. Patient states he had shoulder surgery 10 days ago and that is when the first episode occurred. His states that "TUMS took care of it" at that time and the patient was discharged home. Patient has experienced similar chest discomfort intermittently since that time. This evening, about 4 hours ago, the patient developed a more significant pain with some radiation into the left arm. He did experience some relief with sublingual nitroglycerin but the pain returned. He denies any back pain, jaw tightness or shortness of breath. Patient does have a history of atrial fibrillation status post ablation as well as CAD with stent. also states he had a lower back steroid injection within the last week that has been causing his blood sugars to go up. Patient denies any nausea, vomiting or diarrhea. He states his primary care provider is Ashish Harper PA-C in [place], follows with [facility] cardiology and Dr. Gallagher at [facility] performed his right rotator cuff surgery recently. Of note the patient is on Eliquis due to the history of atrial fibrillation did take an 81 mg aspirin this morning. He did not take any additional aspirin prior to a rrival. REVIEW OF SYSTEMS: A review of systems was performed with positives and pertinent negatives listed in the history of present illness. 10 systems were reviewed and are otherwise negative. ALLERGIES: see below MEDICATIONS: see below PMH: see below SOCIAL HISTORY: see below DDx: Cardiac ischemia, aortic dissection, pulmonary embolism, pneumothorax, pneumonia, pericarditis, myocarditis, esophageal rupture, GERD, cholecystitis, pancreatitis, musculoskeletal, as well as other pathologies. PHYSICAL EXAM: Vital signs reviewed. General: Well-appearing 66-year-old male, in no significant distress. HEENT: No scleral icterus, PERRLA, neck supple. Atraumatic. Cardiovascular: Regular rate and rhythm, no extra sounds. Pulmonary: Clear to auscultation bilaterally, normal work of breathing. Abdomen: Soft, obese, nontender, nondistended, positive bowel sounds. Musculoskeletal: Atraumatic, no peripheral edema. Neurologic: Patient awake alert and oriented x 3 Skin: Warm, dry, no rash. Postsurgical changes noted to the right shoulder with sutures in place. Some postoperative ecchymosis. EMERGENCY DEPARTMENT COURSE/MDM: This patient was evaluated and appeared to be in no significant distress. IV access was obtained and laboratory work was drawn. The patient was placed on a director of cardiac rehabilitation and noted to be in a normal sinus rhythm. EKG reveals evidence of ST depressions concerning for ischemia. Laboratory work reveals elevated troponin MONITORING: An order for cardiac monitoring was placed and the patient is noted to be in a normal sinus rhythm at 79 beats per minute. RADIOLOGY: CXR: To my interpretation is negative for acute process. EKG: Normal sinus rhythm at [address] depression in the anterior lateral leads. QTc is 432. No PVC, no PAC. DISPOSITION: Admit Past Med/Surg History Medical History Anxiety CAD (coronary artery disease) Diabetes mellitus, type 2 Diabetic peripheral neuropathy GERD (gastroesophageal reflux disease) Gout History of atrial fibrillation no longer has Hyperlipidemia Hypertension Myocardial Infarction 2009 Sleep apnea cpap Surgical History History of cardiac cath 2009 @ [place] History of cardiac radiofrequency ablation for A-fib History of heart artery stent --2009 History of repair of left rotator cuff History of total right hip replacement History of wisdom tooth extraction Family History Grandmother (Maternal) Family history of diabetes mellitus Other No family history of adverse response to anesthesia Social History Smoking Status: Never smoker Second Hand Exposure: Yes (family member smoked); Do You Dip or Chew Tobacco: Yes; Hx Alcohol Use: Yes Alcohol type: hard liquor Hx Substance Use: No Preferred Language: Qatari Communication Ability: Effective Mystery Shopper Required: No Beliefs That Will Affect Care: None Current Living Situation: Spouse Current Living Situation Comment: Lives with and son Other Information That Helps Us Care for You: No Feels Safe at Home: Yes Safety Concerns: Feels Safe At This Time Assistive Devices: Glasses and Hearing Aid - Bilateral Allergies Allergies Allergy/AdvReac Type Severity Reaction Status Date / Time No Known Allergies Allergy Verified 10/18/21 02:28 Home Meds Home Medications Medication Instructions Recorded Confirmed aspirin 81 mg tablet,delayed 81 mg PO QAM 12/12/18 10/18/21 release allopurinol 300 mg tablet 300 mg PO QAM 02/06/21 10/18/21 chlorthalidone 25 mg tablet 25 mg PO DAILY 02/06/21 10/18/21 dulaglutide 1.5 mg/0.5 mL 1.5 mg SUBCUT WK 02/06/21 10/18/21 subcutaneous pen injector (Trulicity) ezetimibe 10 mg tablet 10 mg PO HS 02/06/21 10/18/21 Lipitor 20 mg PO DAILY 10/18/21 10/18/21 apixaban 5 mg tablet (Eliquis) 5 mg PO BID 10/18/21 10/18/21 gabapentin 400 mg capsule 400 mg PO HS 10/18/21 10/18/21 glipizide 10 mg tablet, extended 10 mg PO BID 10/18/21 10/18/21 release 24 hr lisinopril 20 mg tablet 20 mg PO BID 10/18/21 10/18/21 metoprolol succinate 50 mg 50 mg PO QAM 10/18/21 10/18/21 tablet,extended release 24 hr omeprazole 40 mg capsule,delayed 40 mg PO DAILY 10/18/21 10/18/21 release oxycodone-acetaminophen 5 mg-325 1 tab PO UD PRN 10/18/21 10/18/21 mg tablet semaglutide (Ozempic) 2 mg SUBCUT UD 10/18/21 10/18/21 Results & Data (ED) Vital Signs Vital Signs - 24 hr 10/18/21 01:09 10/18/21 01:28 10/18/21 02:30 Temperature 36.8 C Temperature Source Temporal Artery Scan Pulse Rate 86 79 78 Respiratory Rate 20 17 17 Respiratory Effort / Characteristics Non-Labored Spontaneous Respiratory Depth Normal Blood Pressure 140/77 123/72 118/68 Blood Pressure Mean 98 89 84 Pulse Oximetry 95 96 95 Oxygen Delivery Method Room Air Room Air Room Air Sepsis New/Unexplained Change in Mental Status N/A Sepsis Action Taken by Nursing No Action Required 10/18/21 03:39 10/18/21 04:00 Temperature Temperature Source Pulse Rate 76 73 Respiratory Rate 20 15 Respiratory Effort / Characteristics Respiratory Depth Blood Pressure 124/78 112/69 Blood Pressure Mean 93 83 Pulse Oximetry 96 95 Oxygen Delivery Method Room Air Room Air Sepsis New/Unexplained Change in Mental Status Sepsis Action Taken by Longterm Medications Current Medication List: was personally reviewed by id Laboratory Data Attestation: I reviewed the patient's lab results. Result diagrams: 10/18/21 01:18 10/18/21 01:18 Lab Results 10/18/21 10/18/21 10/18/21 Range/Units 01:18 01:18 01:18 WBC 12.54 H (4.8-10.8) K/uL RBC 4.56 L (4.7-6.1) M/uL Hgb 13.6 L (14.0-18.0) g/dL Hct 39.8 L (42-52) % MCV 87.3 (80-100) fL MCH 29.8 (25-34) pg MCHC 34.2 (32-36) g/dL RDW Std Deviation 42.8 (36.4-46.3) fL RDW Coeff of Seymour 13.4 (11.5-14.5) % Plt Count 359 (130-400) K/uL MPV 9.6 (7.4-10.4) fL Neutrophils % (Manual) 75.3 % Lymphocytes % (Manual) 15.9 % Monocytes % (Manual) 4.4 % Eosinophils % (Manual) 4.4 % Neutrophils # (Manual) 9.44 H (1.4-6.5) K/uL Total Absolute Neuts 9.44 H (1.4-6.5) K/uL Lymphocytes # (Manual) 1.99 (1.2-3.4) K/uL Total Abs Lymphocytes 1.99 (1.2-3.4) K/uL Monocytes # (Manual) 0.55 (0.11-0.59) K/uL Eosinophils # (Manual) 0.55 H (0-0.5) K/uL RBC Morphology Unremarkable PT 10.1 (9.0-12.0) Seconds INR 0.9 (0.9-1.1) APTT 26.6 (21.0-31.0) Seconds PTT Ratio 1.0 Sodium (136-145) mmol/L Potassium (3.5-5.1) mmol/L Chloride (98-107) mmol/L Carbon Dioxide (21-32) mmol/L Anion Gap (3-11) BUN (6-23) mg/dl Creatinine (0.6-1.4) mg/dl Est Cr Clr Drug Dosing ml/min Est GFR ( Amer) ml/min Est GFR (Non-Af Amer) ml/min BUN/Creatinine Ratio (10-20) Glucose (70-99(Fasting)) mg/dl Calcium (8.5-10.1) mg/dl Magnesium (1.7-2.4) mg/dl Total Bilirubin (0.2-1.0) mg/dl AST (13-39) U/L ALT (7-52) U/L Alkaline Phosphatase (34-104) U/L Troponin I High Sens 43.0 H (0-20) pg/ml Total Protein (6.0-8.3) gm/dl Albumin (3.4-5.0) gm/dl Globulin (2.5-4.0) gm/dl Albumin/Globulin Ratio (0.9-2) Lipase (11-82) U/L SARS-CoV-2 (PCR) (Negative) Influenza Type A (PCR) (Neg) Influenza Type B (PCR) (Neg) RSV (RT-PCR) (Neg) 10/18/21 10/18/21 10/18/21 Range/Units 01:18 01:18 01:44 WBC (4.8-10.8) K/uL RBC (4.7-6.1) M/uL Hgb (14.0-18.0) g/dL Hct (42-52) % MCV (80-100) fL MCH (25-34) pg MCHC (32-36) g/dL RDW Std Deviation (36.4-46.3) fL RDW Coeff of Seymour (11.5-14.5) % Plt Count (130-400) K/uL MPV (7.4-10.4) fL Neutrophils % (Manual) % Lymphocytes % (Manual) % Monocytes % (Manual) % Eosinophils % (Manual) % Neutrophils # (Manual) (1.4-6.5) K/uL Total Absolute Neuts (1.4-6.5) K/uL Lymphocytes # (Manual) (1.2-3.4) K/uL Total Abs Lymphocytes (1.2-3.4) K/uL Monocytes # (Manual) (0.11-0.59) K/uL Eosinophils # (Manual) (0-0.5) K/uL RBC Morphology PT (9.0-12.0) Seconds INR (0.9-1.1) APTT (21.0-31.0) Seconds PTT Ratio Sodium 136 (136-145) mmol/L Potassium 4.6 (3.5-5.1) mmol/L Chloride 101 (98-107) mmol/L Carbon Dioxide 25 (21-32) mmol/L Anion Gap 10 (3-11) BUN 27 H (6-23) mg/dl Creatinine 0.78 (0.6-1.4) mg/dl Est Cr Clr Drug Dosing 118.8 ml/min Est GFR ( Amer) 109.8 ml/min Est GFR (Non-Af Amer) 94.7 ml/min BUN/Creatinine Ratio 34.6 H (10-20) Glucose 264 H (70-99(Fasting)) mg/dl Calcium 9.2 (8.5-10.1) mg/dl Magnesium 1.9 (1.7-2.4) mg/dl Total Bilirubin 0.9 (0.2-1.0) mg/dl AST 16 (13-39) U/L ALT 20 (7-52) U/L Alkaline Phosphatase 80 (34-104) U/L Troponin I High Sens (0-20) pg/ml Total Protein 7.0 (6.0-8.3) gm/dl Albumin 4.3 (3.4-5.0) gm/dl Globulin 2.7 (2.5-4.0) gm/dl Albumin/Globulin Ratio 1.6 (0.9-2) Lipase 41 (11-82) U/L SARS-CoV-2 (PCR) NEGATIVE (Negative) Influenza Type A (PCR) Negative (Neg) Influenza Type B (PCR) Negative (Neg) RSV (RT-PCR) Negative (Neg) Administered Medications Heparin Sodium/Dextrose (Heparin Iv Adult Wt-Based Standard *No* Bolus Protocol) 1 ea IV ONE ONE; Protocol Stop: 10/18/21 08:01 Last Admin: 10/18/21 05:42 Dose: 1 ea Documented by: [id number] Sodium Chloride (Nss 1000ml) 1,000 mls @ 100 mls/hr IV .Q10H ONE Stop: 10/18/21 14:31 Last Admin: 10/18/21 05:53 Dose: 100 mls/hr Documented by: [id number] Heparin Sodium/Dextrose (Heparin Sodium/Dextrose) 25,000 units in 500 mls @ 32 mls/hr IV .[id number] [facility]; Protocol Stop: 11/17/21 07:59 Last Admin: 10/18/21 04:52 Dose: 1,600 units/hr, 32 mls/hr Documented by: [id number] Cosigned by: [id number] Insulin Aspart (Insulin Aspart Per Unit) 0 units SC ACHS [facility] Stop: 11/17/21 05:24 Last Admin: 10/18/21 06:03 Dose: 2 units Documented by: [id number] Cosigned by: [id number] Discontinued Medications Aspirin (Aspirin 81 Mg Chew) 243 mg PO NOW STA Stop: 10/18/21 01:21 Last Admin: 10/18/21 01:28 Dose: 243 mg Documented by: [id number] Aspirin (Aspirin Chew 324 Mg) 243 mg PO NOW STA Stop: 10/18/21 01:28 Last Admin: 10/18/21 01:42 Dose: Not Given Documented by: [id number] Heparin Sodium/Dextrose (Heparin 44553 Unit/500 Ml D5w) Confirm Administered Dose 25,000 units IV .STK-MED ONE Stop: 10/18/21 04:45 Last Admin: 10/18/21 04:52 Dose: Not Given Documented by: [id number] Insulin Glargine (Insulin Glargine Solostar 100 Units/Ml 3 Ml Pen) 10 units SC NOW STA Stop: 10/18/21 04:33 Last Admin: 10/18/21 04:50 Dose: 10 units Documented by: [id number] Cosigned by: [id number] Nitroglycerin (Nitroglycerin 2% Ointment 30gm Tube) 1 inch EXT NOW ONE Stop: 10/18/21 01:20 Last Admin: 10/18/21 01:28 Dose: 1 inch Documented by: [id number] Blood Pressure Blood Pressure Findings: Normal blood pressure Blood Pressure Disposition: did not require urgent referral Discharge Plan Visit Data Chief Complaint: Chest Pain Stated Complaint: CHEST PAIN THAT WONT GO AWAY ED Provider: Sivan Irvin Patient Disposition: Admitted As Inpatient Discharge Instructions Interventions: ED Discharge Assessment Last Done: 10/18/21 05:07
[2021-10-18 01:43] LABS: Hematocrit (blood only) 39.8 % (42-52); Hemoglobin 13.6 g/dL (14.0-18.0); Mean Corpuscular Hemoglobin 29.8 pg (25-34); Mean Corpuscular Hgb Conc 34.2 g/dL (32-36); Mean Corpuscular Volume 87.3 fL (80-100); Mean Platelet Volume 9.6 fL (7.4-10.4); Platelet Count 359 K/uL (130-400); RDW Coefficient of Variation 13.4 % (11.5-14.5); RDW Standard Deviation 42.8 fL (36.4-46.3); Red Blood Count 4.56 M/uL (4.7-6.1); White Blood Count 12.54 K/uL (4.8-10.8)
[2021-10-18 01:58] LABS: INR 0.9 (0.9-1.1); Partial Thromboplastin Time 26.6 Seconds (21.0-31.0); Prothrombin Time 10.1 Seconds (9.0-12.0)
[2021-10-18 02:02] LABS: ALC (manual) 1.99 K/uL (1.2-3.4); ANC (manual) 9.44 K/uL (1.4-6.5); Eosinophils # (manual) 0.55 K/uL (0-0.5); Eosinophils % (manual) 4.4 %; Lymphocytes # (manual) 1.99 K/uL (1.2-3.4); Lymphocytes % (manual) 15.9 %; Monocytes # (manual) 0.55 K/uL (0.11-0.59); Monocytes % (manual) 4.4 %; Neutrophils # (manual) 9.44 K/uL (1.4-6.5); Neutrophils % (manual) 75.3 %; RBC Morphology Unremarkable
[2021-10-18 02:12] LABS: Albumin Globulin Ratio 1.6 (0.9-2); Albumin Level 4.3 gm/dl (3.4-5.0); BUN Creatinine Ratio 34.6 (10-20); Bilirubin,Total 0.9 mg/dl (0.2-1.0); Calcium 9.2 mg/dl (8.5-10.1); Creatinine Clr Calc Pharmacy 118.8 ml/min; Est GFR (African American) 109.8 ml/min; Est GFR (Non-African American) 94.7 ml/min; Globulin 2.7 gm/dl (2.5-4.0); Potassium 4.6 mmol/L (3.5-5.1)
[2021-10-18 02:27] LABS: Influenza A virus by PCR Negative (Neg); Influenza B virus by PCR Negative (Neg); RSV by PCR Negative (Neg); SARS CoV2 RNA(COVID-19) InHosp NEGATIVE (Negative)
--- NOTE | 2021-10-18 03:50 | History & Physical Report ---
Date of Service October 18, 2021 Assessment & Plan (1) NSTEMI (non-ST elevated myocardial infarction): Plan: hx CAD sp stenting Afib post ablation, patient NSR on Eliquis hypertension; stable hyperlipidemia, on statin rx DM2 on oral medications, suboptimal control as of hemoglobin A1c of 8 last January 2021 FAUSTO on CPAP chronic anemia, hemoglobin at baseline Recent right shoulder surgery Past tobacco abuse PCU Continue continue antiplatelet Rx, beta-corey, and statin medications Follow troponin TTE, Cardiology consult Re: ACS N.p.o. until patient seen by cardiology in anticipation of procedure. Hold Eliquis until patient seen by Cardiology. IV heparin for NSTEMI while Eliquis on hold (initiate 12 hours after last dose of Eliquis taken by patient last night) Update lipid profile Basal insulin adjusted for n.p.o. status, ISS BG goal 1 10-1 40, update hemog lobin A1c Orthopedics consult for postop evaluation of right shoulder if patient still here by tomorrow (Postop follow-up visit at [facility] originally scheduled for tomorrow.) DVT prophylaxis. IV heparin Full code Text document was generated using Codementor voice recognition software. It may contain grammatical or spelling errors. Kindly contact undersigned for clarification of any documentation item in question. History of Present Illness Chief Complaint: Chest pain Primary Care Provider: Ashish Arias Medical history significant for CAD sp stenting, PAF sp ablation on Eliquis, hypertension; hyperlipidemia, DM2 on oral medications, FAUSTO on CPAP, chronic anemia (baseline hemoglobin of 13), gout, past tobacco abuse Last confinement January 2021 for A. fib with RVR 10 days ago, patient underwent outpatient right shoulder surgery at [facility]. At home after the procedure, patient experienced substernal discomfort relieved by Tums. Patient was watching television with his last night when he experienced recurrence of achy chest discomfort all over with some radiation to the left arm with shortness of breath and diaphoresis. No cough symptoms. Discomfort relieved by nitroglycerin intake at home. Patient compliant with home medications. Denies unusual stress. Patient brought to the ER by . Aspirin and Nitropaste administered at the ER. Patient currently comfortable. 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 Allergies Allergy/AdvReac Type Severity Reaction Status Date / Time No Known Allergies Allergy Verified 10/18/21 02:28 Home Medications Medication Instructions Recorded Confirmed Type aspirin 81 mg tablet,delayed 81 mg PO QAM 12/12/18 10/18/21 History release allopurinol 300 mg tablet 300 mg PO QAM 02/06/21 10/18/21 History chlorthalidone 25 mg tablet 25 mg PO DAILY 02/06/21 10/18/21 History dulaglutide 1.5 mg/0.5 mL 1.5 mg SUBCUT WK 02/06/21 10/18/21 History subcutaneous pen injector (Trulicity) ezetimibe 10 mg tablet 10 mg PO HS 02/06/21 10/18/21 History Lipitor 20 mg PO DAILY 10/18/21 10/18/21 History apixaban 5 mg tablet (Eliquis) 5 mg PO BID 10/18/21 10/18/21 History gabapentin 400 mg capsule 400 mg PO HS 10/18/21 10/18/21 History glipizide 10 mg tablet, extended 10 mg PO BID 10/18/21 10/18/21 History release 24 hr lisinopril 20 mg tablet 20 mg PO BID 10/18/21 10/18/21 History metoprolol succinate 50 mg 50 mg PO QAM 10/18/21 10/18/21 History tablet,extended release 24 hr omeprazole 40 mg capsule,delayed 40 mg PO DAILY 10/18/21 10/18/21 History release oxycodone-acetaminophen 5 mg-325 1 tab PO UD PRN 10/18/21 10/18/21 History mg tablet semaglutide (Ozempic) 2 mg SUBCUT UD 10/18/21 10/18/21 History Past Med/Surg History Medical History Anxiety CAD (coronary artery disease) Diabetes mellitus, type 2 Diabetic peripheral neuropathy GERD (gastroesophageal reflux disease) Gout History of atrial fibrillation no longer has Hyperlipidemia Hypertension Myocardial Infarction 2009 Sleep apnea cpap Surgical History [place] of cardiac [place] [facility] [place] of cardiac radiofrequency ablation for A-fib History of heart artery stent 1--2009 History of repair of left rotator cuff History of total right hip replacement History of wisdom tooth extraction Family History Grandmother (Maternal) Family history of diabetes mellitus Other No family history of adverse response to anesthesia Social History Smoking Status: Never smoker Second Hand Exposure: Yes (family member smoked); Do You Dip or Chew Tobacco: Yes; Hx Alcohol Use: Yes Alcohol type: hard liquor Hx Substance Use: No Preferred Language: Portuguese Communication Ability: Effective Senior Javascript Engineer Required: No Beliefs That Will Affect Care: None Current Living Situation: Spouse Current Living Situation Comment: Lives with and son Other Information That Helps Us Care for You: No Feels Safe at Home: Yes Safety Concerns: Feels Safe At This Time Assistive Devices: Glasses and Hearing Aid - Bilateral Review of Systems Review of Systems: As per HPI, all other systems reviewed and negative Physical Exam Physical Exam: GENERAL: Comfortable, morbidly obese, no respiratory distress SKIN: Normal color, warm HEENT: Partial alopecia, [place] palpebral conjunctivae, no ptosis, dry buccal mucosa NECK : Supple, short neck, no tenderness CHEST : CTA, no tenderness HEART : RRR, no obvious murmurs ABDOMEN: Some distention, nontender EXTREMITIES : No LE swelling/tenderness, bruising over right shoulder with sutures in place NEUROLOGIC : Coherent, no facial asymmetry, no other gross focality Results & Data Results & Data ([facility]) Vital Signs (Past 12 Hours) Vital Signs Temp Pulse Resp BP Pulse Ox 10/18/21 02:30 78 17 118/68 95 10/18/21 01:28 79 17 123/72 96 10/18/21 01:09 36.8 C 86 20 140/77 95 Laboratory Results Laboratory Results WBC 12.54 K/uL (4.8-10.8) H 10/18/21 01:18 RBC 4.56 M/uL (4.7-6.1) L 10/18/21 01:18 Hgb 13.6 g/dL (14.0-18.0) L 10/18/21 01:18 Hct 39.8 % (42-52) L 10/18/21 01:18 MCV 87.3 fL (80-100) 10/18/21 01:18 MCH 29.8 pg (25-34) 10/18/21 01:18 MCHC 34.2 g/dL (32-36) 10/18/21 01:18 RDW Std Deviation 42.8 fL (36.4-46.3) 10/18/21 01:18 RDW Coeff of Seymour 13.4 % (11.5-14.5) 10/18/21 01:18 Plt Count 359 K/uL (130-400) 10/18/21 01:18 MPV 9.6 fL (7.4-10.4) 10/18/21 01:18 Neutrophils % (Manual) 75.3 % 10/18/21 01:18 Lymphocytes % (Manual) 15.9 % 10/18/21 01:18 Monocytes % (Manual) 4.4 % 10/18/21 01:18 Eosinophils % (Manual) 4.4 % 10/18/21 01:18 Neutrophils # (Manual) 9.44 K/uL (1.4-6.5) H 10/18/21 01:18 Total Absolute Neuts 9.44 K/uL (1.4-6.5) H 10/18/21 01:18 Lymphocytes # (Manual) 1.99 K/uL (1.2-3.4) 10/18/21 01:18 Total Abs Lymphocytes 1.99 K/uL (1.2-3.4) 10/18/21 01:18 Monocytes # (Manual) 0.55 K/uL (0.11-0.59) 10/18/21 01:18 Eosinophils # (Manual) 0.55 K/uL (0-0.5) H 10/18/21 01:18 RBC Morphology Unremarkable 10/18/21 01:18 PT 10.1 Seconds (9.0-12.0) 10/18/21 01:18 INR 0.9 (0.9-1.1) 10/18/21 01:18 APTT 26.6 Seconds (21.0-31.0) 10/18/21 01:18 PTT Ratio 1.0 10/18/21 01:18 Sodium 136 mmol/L (136-145) 10/18/21 01:18 Potassium 4.6 mmol/L (3.5-5.1) 10/18/21 01:18 Chloride 101 mmol/L (98-107) 10/18/21 01:18 Carbon Dioxide 25 mmol/L (21-32) 10/18/21 01:18 Anion Gap 10 (3-11) 10/18/21 01:18 BUN 27 mg/dl (6-23) H 10/18/21 01:18 Creatinine 0.78 mg/dl (0.6-1.4) 10/18/21 01:18 Est Cr Clr Drug Dosing 118.8 ml/min 10/18/21 01:18 Est GFR ( Amer) 109.8 ml/min 10/18/21 01:18 Est GFR (Non-Af Amer) 94.7 ml/min 10/18/21 01:18 BUN/Creatinine Ratio 34.6 (10-20) H 10/18/21 01:18 Glucose 264 mg/dl (70-99(Fasting)) H 10/18/21 01:18 Calcium 9.2 mg/dl (8.5-10.1) 10/18/21 01:18 Total Bilirubin 0.9 mg/dl (0.2-1.0) 10/18/21 01:18 AST 16 U/L (13-39) 10/18/21 01:18 ALT 20 U/L (7-52) 10/18/21 01:18 Alkaline Phosphatase 80 U/L (34-104) 10/18/21 01:18 Troponin I High Sens 43.0 pg/ml (0-20) H 10/18/21 01:18 Total Protein 7.0 gm/dl (6.0-8.3) 10/18/21 01:18 Albumin 4.3 gm/dl (3.4-5.0) 10/18/21 01:18 Globulin 2.7 gm/dl (2.5-4.0) 10/18/21 01:18 Albumin/Globulin Ratio 1.6 (0.9-2) 10/18/21 01:18 Lipase 41 U/L (11-82) 10/18/21 01:18 SARS-CoV-2 (PCR) NEGATIVE (Negative) 10/18/21 01:44 Influenza Type A (PCR) Negative (Neg) 10/18/21 01:44 Influenza Type B (PCR) Negative (Neg) 10/18/21 01:44 RSV (RT-PCR) Negative (Neg) 10/18/21 01:44 Diagnostic Findings Chest x-ray as per my interpretation cardiomegaly, atelectasis, elevated right hemidiaphragm EKG as per my interpretation : Rate 85, NSR, normal axis, ST depression lateral leads
[2021-10-18] MEDS ORDERED: LORazepam 2 MG/1 ML VIAL IV PRN (04:32)
[2021-10-18] MEDS ORDERED: INSULIN GLARGINE SOLOSTAR 100 UNITS/ML 3 ML PEN SC STA ×2 (04:32→20:00)
[2021-10-18] MEDS ORDERED: SODIUM CHLORIDE 0.9% 1000ML 1,000 ML IV ONE (04:32)
[2021-10-18] MEDS ORDERED: MoRPHine SULFATE 4 MG/ML 1 ML CARP\\VIAL IV PRN (04:32)
[2021-10-18] MEDS ORDERED: PROMETHAZINE HCL 12.5 MG in SODIUM CHLORIDE 0.9% 50 ML IV PRN (04:32)
[2021-10-18] MEDS ORDERED: oxyCODONE HCL IR 5 MG TAB (IMMEDIATE RELEASE) PO PRN (04:32)
[2021-10-18] MEDS ORDERED: HEPARIN 25000 UNIT/500 ML D5W IV ONE (04:44)
[2021-10-18] MEDS: HEPARIN SODIUM/DEXTROSE 25,000 UNITS/500 ML BAG IV SCH ×2 (04:52→20:45)
[2021-10-18] MEDS ORDERED: DEXTROSE 50% 50 ML SYRINGE IV PRN (05:25)
[2021-10-18] MEDS ORDERED: GLUCOSE 40% GEL 15 GM TUBE PO PRN (05:25)
[2021-10-18] MEDS ORDERED: CARBOHYDRATES FOR HYPOGLYCEMIA PO PRN (05:25)
[2021-10-18] MEDS ORDERED: NITROGLYCERIN SL 0.4 MG/TAB TAB SL PRN (05:25)
[2021-10-18] MEDS ORDERED: ACETAMINOPHEN 325 MG TAB PO PRN (05:25)
[2021-10-18] MEDS ORDERED: GLUCAGON FOR INJ 1 MG VIAL SQ PRN (05:25)
[2021-10-18] MEDS ORDERED: GLUCOSE 10 TABS/TUBE PO PRN (05:25)
[2021-10-18] MEDS: INSULIN ASPART PER UNIT SC SCH ×4 (06:03→20:34)
[2021-10-18 06:51] LABS: Chol HDL Ratio 3.4 (0-5)
--- NOTE | 2021-10-18 07:49 | XRay Report ---
XR chest 1V portable CLINICAL HISTORY: Chest Pain. COMPARISON STUDY: 02/06/2021 TECHNIQUE: 1 view of the chest FINDINGS: Single frontal view of the chest demonstrates the cardiomediastinal silhouette to be within normal li mits. The lungs are clear of alveolar opacities. There is no evidence for pleural effusion. There is no evidence for vascular congestion. There is no acute osseous pathology. IMPRESSION: 1. No acute cardiopulmonary disease. ACT 112: Negative or not required by law. Electronically signed by: Alec Ledezma M.D. 10/18/2021 7:48 AM
[2021-10-18] MEDS ORDERED: Heparin IV Adult Wt-Based Standard *NO* Bolus Protocol IV ONE (08:00)
[2021-10-18] MEDS: allopurinoL 300 MG TAB PO SCH (08:05)
[2021-10-18] MEDS: ATORVASTATIN 20 MG TAB PO SCH (08:05)
[2021-10-18] MEDS: lisinopril 20 MG TAB PO SCH ×2 (08:06→20:33)
[2021-10-18] MEDS: METOPROLOL SUCC 50MG EXT REL TAB PO SCH (08:06)
[2021-10-18] MEDS: PANTOprazole 40 MG TAB PO SCH (08:07)
[2021-10-18 08:32] LABS: Estimated Average Glucose 200 mg/dl; Hemoglobin A1C 8.6 % (4.5-5.6)
--- NOTE | 2021-10-18 09:07 | Cardiology Consultation ---
Date of Consultation October 18, 2021 Assessment & Plan (1) Chest pain: (2) CAD (coronary artery disease): (3) ST segment changes on electrocardiogram: (4) NSTEMI (non-ST elevated myocardial infarction): Hx of CAD, s/p PCI in 2009 at [facility]. Recent chest pain x3 occurrences yesterday (10 days post rotator cuff surgery). Pain exertional- relieved by rest and nitro use. EKG changes showed ST depression in anterior/lateral leads (V4-V6). Echo showed stable LVEF and no WMA Currently chest pain free. Renal function stable. 1. Plans for cardiac catheterization with Dr. Kleler tomorrow am. Risk vs. benefit discussed with patient in detail- patient would like to move forward with cardiac cath. No known dye allergy. Notes that last cath was done thru his groin. 2. Continue IV heparin today- Heparin should be shut off 4 hours prior to cath procedure 3. Okay for patient to eat today, he should be made NPO at midnight. Okay to take pills with a sip of water 4. Continue ASA 81 mg daily 5. Continue statin therapy with Lipitor and Zetia (5) Afib: Paroxysmal atrial fibrillation, status post PVI, cryoablation and EP study 08/13/2015-no known recurrence since 02/06/2021. Normally maintained on Eliquis. No afib seen on telemetry. (6) HTN, goal below 140/80: Controlled- no changes at this time. 1. Continue metoprolol succinate 50 mg daily 2. Continue lisinopril 20 mg twice daily Case discussed with Dr. Keller. Supervising Physician Co-Signing Physician Notes I have seen and examined the patient. I reviewed the medical record and discussed the case with the nurse practitioner. I think the patient should undergo cardiac catheterization. He has previous coronary artery disease and coronary interventions. He is history is consistent with progressive angina and his EKG does have some new changes. He understands the risk, benefit and intent of the procedure and is willing to proceed. History of Present Illness Reason for Consultation: NSTEMI Requesting Physician: [facility] hospitalist Attending Physician: Gladis Maradiaga MD History of Present Illness 66-year-old male. Primarily follows with Dr. Good and Candace Garcia PA-C as an outpatient with [facility]. Presented to the emergency department due to complaints of left-sided chest discomfort that radiated to his left arm and caused a severe pressure like sensation. He also had shortness of breath and diaphoresis. Occurred with minimal exertion (walking to the bathroom). Patient sat down and took nitroglycerin which relieved his symptoms. He had 3 occurrences of this pain yesterday. Each occurance lasted about 2-3 minutes. Recently, 10 days ago, patient underwent outpatient right shoulder surgery at [facility] [place]. The same day as his procedure he developed a substernal discomfort which was relieved by Tums. Chest x-ray was unremarkable. EKG showed normal sinus rhythm with ST depression in anterior lateral leads (V4-V6). Eliquis was held and patient was started on IV heparin. HS troponin: 43>> 50.1. Echocardiogram showed a normal LVEF of 50 to 55%. No wall motion abnormalities. Right ventricular systolic function normal. Left atrium mildly dilated. Single posterior papillary muscle to which the anterior leaflet is attached, no significant MR Upon entrance into the room patient was resting comfortably in bed. He has had no further complaints of chest/arm pain. Has been up to ambulate to the restroom. No shortness of breath, palpitations, dizziness, syncope or near syncope. No orthopnea, PND, or increased lower extremity edema. No fever, chills, cough, hematochezia, melena, or hemoptysis. Tele: SR 70-80s Past medical history: Chronic CAD with BMS to LAD, 2009 (thru groin at [facility]) Nuclear stress test 02/2021- Small to moderate sized fixed inferior perfusion defect-? attenuation artifact. No reversible perfusion defect to suggest ischemia, Equivocal EKG changes showing horizontal ST depression in inferior leads Paroxysmal atrial fibrillation, status post PVI, cryoablation and EP study 08/13/2015-no known recurrence since 02/06/2021, on Eliquis. Hypertension Dyslipidemia, LDL goal below 70 [place], on CPAP Obesity Chewing tobacco abuse Type 2 diabetes Allergies Allergy/AdvReac Type Severity Reaction Status Date / Time No Known Allergies Allergy Verified 10/18/21 02:28 Home Medications Medication Instructions Recorded Confirmed Type aspirin 81 mg tablet,delayed 81 mg PO QAM 12/12/18 10/18/21 History release allopurinol 300 mg tablet 300 mg PO QAM 02/06/21 10/18/21 History chlorthalidone 25 mg tablet 25 mg PO DAILY 02/06/21 10/18/21 History dulaglutide 1.5 mg/0.5 mL 1.5 mg SUBCUT WK 02/06/21 10/18/21 History subcutaneous pen injector (Trulicity) ezetimibe 10 mg tablet 10 mg PO HS 02/06/21 10/18/21 History Lipitor 20 mg PO DAILY 10/18/21 10/18/21 History apixaban 5 mg tablet (Eliquis) 5 mg PO BID 10/18/21 10/18/21 History gabapentin 400 mg capsule 400 mg PO HS 10/18/21 10/18/21 History glipizide 10 mg tablet, extended 10 mg PO BID 10/18/21 10/18/21 History release 24 hr lisinopril 20 mg tablet 20 mg PO BID 10/18/21 10/18/21 History metoprolol succinate 50 mg 50 mg PO QAM 10/18/21 10/18/21 History tablet,extended release 24 hr omeprazole 40 mg capsule,delayed 40 mg PO DAILY 10/18/21 10/18/21 History release oxycodone-acetaminophen 5 mg-325 1 tab PO UD PRN 10/18/21 10/18/21 History mg tablet semaglutide (Ozempic) 2 mg SUBCUT UD 10/18/21 10/18/21 History Patient History Medical History Anxiety CAD (coronary artery disease) Diabetes mellitus, type 2 Diabetic peripheral neuropathy GERD (gastroesophageal reflux disease) Gout History of atrial fibrillation no longer has Hyperlipidemia Hypertension Myocardial Infarction 2010 Sleep apnea cpap Surgical History History of cardiac cath 2009 @ [facility] History of cardiac radiofrequency ablation for A-fib History of heart artery stent 1--2009 History of repair of left rotator cuff History of total right hip replacement History of wisdom tooth extraction Family History Grandmother (Maternal) Family history of diabetes mellitus Other No family history of adverse response to anesthesia Social History Smoking Status: Never smoker Second Hand Exposure: Yes (family member smoked); Do You Dip or Chew Tobacco: Yes; Hx Alcohol Use: Yes Alcohol type: hard liquor Hx Substance Use: No Preferred Language: Divehi Communication Ability: Effective Web Project Manager Required: No Beliefs That Will Affect Care: None Current Living Situation: Spouse Current Living Situation Comment: Lives with and son Other Information That Helps Us Care for You: No Feels Safe at Home: Yes Safety Concerns: Feels Safe At This Time Assistive Devices: Glasses and Hearing Aid - Bilateral Review of Systems Review of Systems: All systems reviewed & are unremarkable except as noted in HPI & below Physical Exam Physical Exam: General: No acute distress. A+Ox3. HEENT: Normocephalic. Atraumatic. Conjunctiva and sclera clear. NECK: No carotid bruits. No JVD. Carotid upstrokes are brisk. Heart: RRR. S1 and S2 noted without murmur, rubs, gallops. PMI non displaced. Lungs: Clear to auscultation. No wheezes, rhonchi, rales. Abdomen: Normal bowel sounds. Soft. Nontender. No masses or organomegaly. No abdominal bruits. Extremities: +1 BLLE edema. No clubbing or cyanosis. Right arm/shoulder incisions well aproximated Pulses: radial=2/4, posterior tibial=2/4, dorsalis pedis = 2/4. NEURO: No focal deficits. PSYCH: Normal. Results & Data ([facility]) Vital Signs (Past 12 Hours) Vital Signs Temp Pulse Pulse Resp BP BP Pulse Ox 10/18/21 07:01 36.6 C 80 19 118/66 96 10/18/21 05:32 36.7 C 79 16 126/79 10/18/21 04:30 73 15 121/73 10/18/21 04:00 73 15 112/69 10/18/21 03:39 76 20 124/78 96 10/18/21 02:30 78 17 118/68 10/18/21 01:28 79 17 123/72 96 10/18/21 01:09 36.8 C 86 20 140/77 95 Laboratory Results Cardiac Enzymes 10/18/21 10/18/21 10/18/21 Range/Units 01:18 01:18 05:53 AST 16 (13-39) U/L Troponin I High Sens 43.0 H 50.1 H* (0-20) pg/ml Coagulation 10/18/21 Range/Units 01:18 PT 10.1 (9.0-12.0) Seconds APTT 26.6 (21.0-31.0) Seconds Lipids 10/18/21 Range/Units 05:53 Triglycerides 151 H (0-150) mg/dl Cholesterol 100 (0-200) mg/dl HDL Cholesterol 29 mg/dl Cholesterol/HDL Ratio 3.4 (0-5) CBC 10/18/21 Range/Units 01:18 WBC 12.54 H (4.8-10.8) K/uL RBC 4.56 L (4.7-6.1) M/uL Hgb 13.6 L (14.0-18.0) g/dL Hct 39.8 L (42-52) % Plt Count 359 (130-400) K/uL Comprehensive Metabolic Panel 10/18/21 Range/Units 01:18 Sodium 136 (136-145) mmol/L Potassium 4.6 (3.5-5.1) mmol/L Chloride 101 (98-107) mmol/L Carbon Dioxide 25 (21-32) mmol/L BUN 27 H (6-23) mg/dl Creatinine 0.78 (0.6-1.4) mg/dl Glucose 264 H (70-99(Fasting)) mg/dl Calcium 9.2 (8.5-10.1) mg/dl AST 16 (13-39) U/L ALT 20 (7-52) U/L Alkaline Phosphatase 80 (34-104) U/L Total Protein 7.0 (6.0-8.3) gm/dl Albumin 4.3 (3.4-5.0) gm/dl Intake and Output 10/17/21 10/18/21 10/18/21 22:59 06:59 14:59 Other: Weight 113.9 kg Weight Measurement Method Standing Scale Diagnostic Findings Echo 10/18/2021 LVEF 50 to 55% with no wall motion abnormalities. Left atrium mildly dilated Single posterior papillary muscle to which the anterior leaflet is attached, no significant MR. Nuclear lexiscan report reviewed dated Feb 2021: Interpretation Summary A combined low intensity exercise/Lexiscan myocardial perfusion imaging study was performed, 1 day protocol. (1) There is a small to moderate-sized fixed inferior perfusion defect, which appears to be related to attenuation artifact given the normal gated wall motion in the appearance of the raw data rather than scar. There is no reversible perfusion defect to suggest ischemia. (2) The stress EKG however is noted to have equivocal 1 to 1.[address] depression in the inferior leads. (3)Sinus rhythm was maintained throughout the study. (4) Per review of prior stress EKG tracing dating back to the prior study in 2014 , the repolarization changes noted on the present study are new, not observed in 2015. (5) Gated SPECT imaging reveals normal myocardial thickening and wall motion. The left ventricular ejection fraction was calculated to be > 70%. 2D echocardiogram report summary September 25, 2020: The left ventricular cavity size is normal. The LV wall thickness is mildly increased (concentric). The left ventricular wall motion is normal. Calculated LV ejection Fraction = 60% (bi-plane method of discs). The left ventricular diastolic function is mildly abnormal (grade I). The aortic valve has three leaflets. Mild aortic valve sclerosis is present. Aortic stenosis is absent. Mild aortic valve regurgitation is present. There is focal thickening of the posterior mitral valve leaflet(S). The mitral valve chordae are focally calcified. Significant mitral regurgitation is absent.
[2021-10-18 12:48] LABS: Partial Thromboplastin Ratio 1.4; Partial Thromboplastin Time 38.6 Seconds (21.0-31.0)
--- NOTE | 2021-10-18 15:11 | Electrocardiogram Report ---
Test Reason : Blood Pressure : / mmHG Vent. Rate : 084 BPM Atrial Rate : 084 BPM P-R Int : 172 ms QRS Dur : 090 ms QT Int : 366 ms P-R-T Axes : 068 051 101 degrees QTc Int : 432 ms Normal sinus rhythm ST depression, consider subendocardial injury Abnormal ECG When compared with ECG of 07-FEB-2021 05:28, ST now depressed in Anterolateral leads Confirmed by Kemar Jimenez ([id number]) on 10/18/2021 3:10:48 PM Referred By: REFERRED SELF Confirmed By:Kemar Jimenez
[2021-10-18 19:20] LABS: Partial Thromboplastin Ratio 1.5
[2021-10-18] MEDS ORDERED: EZETIMIBE 10 MG TABLET PO SCH (21:00)
[2021-10-18] MEDS ORDERED: GABAPENTIN 400 MG CAP PO SCH (21:00)
--- NOTE | 2021-10-18 21:44 | Communication Note ---
Date of Service: October 18, 2021 Pt was seen and examined for folllow up of chest pain. Sitting at the edge of the bed with no acute distress. His troponin is trending down. Currently on IV heparin drip. Cardiology plan for cardiac cath tomorrow. Will make NPO after midnight. Continue aspirin, statin and metoprolol. Will continue monitor closely in telemetry. MD Hiren
[2021-10-19] MEDS ORDERED: Nursing to Pharmacy Communication SCH ×3 (00:45→10:30)
[2021-10-19 04:32] LABS: Partial Thromboplastin Ratio 1.8
[2021-10-19 04:34] LABS: Partial Thromboplastin Time 48.8 Seconds (21.0-31.0)
[2021-10-19] MEDS ORDERED: INSULIN ASPART PER UNIT SC SCH (06:00)
[2021-10-19] MEDS ORDERED: LIDOCAINE 1% LOCAL 20 ML VIAL ONE (07:12)
[2021-10-19] MEDS: ATORVASTATIN 20 MG TAB PO SCH (07:26)
[2021-10-19] MEDS: METOPROLOL SUCC 50MG EXT REL TAB PO SCH (07:26)
[2021-10-19] MEDS: allopurinoL 300 MG TAB PO SCH (07:26)
[2021-10-19] MEDS: lisinopril 20 MG TAB PO SCH (07:26)
[2021-10-19] MEDS: PANTOprazole 40 MG TAB PO SCH (07:26)
[2021-10-19] MEDS: HEPARIN SODIUM/DEXTROSE 25,000 UNITS/500 ML BAG IV SCH ×2 (08:00→16:08)
--- NOTE | 2021-10-19 08:21 | Pre Anesthesia Assessment ---
Date of Service October 19, 2021 Pre Sedation Assessment Vital Signs Temp Pulse Pulse Resp BP Pulse Ox 10/19/21 08:12 75 18 123/77 95 10/19/21 06:58 36.6 C 76 19 135/76 96 10/18/21 23:54 36.8 C 75 18 132/88 97 10/18/21 23:02 86 10/18/21 18:47 36.6 C 82 19 127/70 96 10/18/21 16:47 78 10/18/21 15:38 36.5 C 77 19 130/71 95 10/18/21 11:31 36.7 C 72 19 127/75 95 10/18/21 10:05 75 Pre-Sedation Airway Assessment Smoking Status: Never smoker Hx Sleep Apnea: No Short, Thick Neck: No Thyromental Distance: > or= 3.5 Finger Breadths Oral Cavity: + WNL Mallampati Class: III ASA: ASA2 NPO Status Date of Last Intake of Fluids: 10/19/21 Time of Last Intake of Fluids: 06:00 Date of Last Intake of Solid Food: 10/18/21 Time of Last Intake of Solid Foods: 22:00 Notes The planned sedation has been discussed with the patient. Informed Consent was obtained. I have identified the patient, determined the appropriateness of sedation and have assessed the patient immediately prior to the procedure. All medicine(s) and interventions are by my order.
[2021-10-19] MEDS ORDERED: MIDAZOLAM HCL 1 MG/ML 2ML VIAL ONE (08:28)
[2021-10-19] MEDS ORDERED: INSULIN GLARGINE SOLOSTAR 100 UNITS/ML 3 ML PEN SC SCH ×2 (09:00)
[2021-10-19] MEDS ORDERED: ASPIRIN 81 MG ECTAB PO SCH (09:00)
--- NOTE | 2021-10-19 09:34 | Cardiac Catheterization ---
Date of Service October 19, 2021 Cardiac Cath Report Cardiac Cath Report Procedure: 1. Left heart catheterization 2. Coronary angiography 3. Left ventriculogram History: This is a 66-year-old male diabetic with a history of coronary artery disease and a bare-metal stent placed in the LAD in 2009. He also is status post PVI for atrial fibrillation in 2016. He is statin intolerant. Approximately a week ago the patient underwent rotator cuff surgery. Soon after that he began having chest pain with minimal exertion and presented to the hospital. He has some new EKG changes and borderline elevation in his high-sensitivity troponins and was referred for cardiac catheterization. Procedure summary: After informed consent was obtained the patient was brought to the cardiac catheterization lab where access was obtained using a retrograde Salinger technique from the right femoral artery. Preformed 5 Nigerian diagnostic catheters were utilized for the coronary angiograms. A 5 Nigerian pigtail catheter was utilized for the left heart pressures and left ventriculogram. Following the procedure the arterial site was closed with a minx device and the patient was returned to his room in stable condition. ACC data: Start time 8:36 AM End time 8:56 AM Opening aortic pressure 141/77 Closing aortic pressure 156/85 LV pressure 159/15 Sedation 1 mg intravenous Versed IV fluid 50 cc normal saline Contrast 145 cc Optiray Fluoroscopy time 5.3 minutes Radiation 1576 mGy DAP 161.65 Guerra per centimeter squared Left dominant system AUC score 9 Coronary angiography: Injections into the left coronary artery reveal short left main trunk which is patent. There is evidence of a stent in the proximal LAD and just before the stented site there is a high-grade 80 to 90% stenoses. There is a large proximal diagonal branch which was most likely jailed by the stent which has either to me grade 1 flow or fills by left to left collaterals. The remainder the LAD system is diffusely diseased the left circumflex artery is dominant. The left circumflex artery is diffusely diseased. The first marginal branch is large and has an ostial 80 to 90% stenoses. After the takeoff of the first marginal there is a second 70 to 80% stenoses. The left circumflex artery continues on with nonobstructive disease and provides a second medium sized marginal branch as well as a PDA branch. Injections into the right coronary artery reveal it to be nondominant however it does supply a large marginal branch. In the midportion of the right coronary artery there is a 80 to 90% stenoses. Left ventriculogram: The left ventricle is of normal size. There is hypokinesis of the distal anterior and apical myocardium. The estimated left ventricular ejection fraction is around 50%. The mitral valve is competent. The aortic root and ascending aorta have normal morphology. Summary: The patient has severe three-vessel coronary artery disease including a proximal LAD stenoses. Left ventricular systolic function is preserved with some hypokinesis of the distal anterior and apical myocardium. Recommendations: Consideration for open heart surgery and coronary artery bypass.
[2021-10-19 10:50] LABS: Basophils # (auto) 0.06 K/uL (0-0.2); Basophils % (auto) 0.6 %; Eosinophils # (auto) 0.37 K/uL (0-0.5); Eosinophils % (auto) 3.4 %; Hematocrit (blood only) 39.4 % (42-52); Hemoglobin 13.7 g/dL (14.0-18.0); Immature Granulocytes # (auto) 0.06 K/uL (0.00-0.02); Immature Granulocytes % (auto) 0.6 %; Lymphocytes # (auto) 2.06 K/uL (1.2-3.4); Lymphocytes % (auto) 19.1 %; Mean Corpuscular Hemoglobin 30.4 pg (25-34); Mean Corpuscular Hgb Conc 34.8 g/dL (32-36); Mean Corpuscular Volume 87.6 fL (80-100); Mean Platelet Volume 9.4 fL (7.4-10.4); Monocytes % (auto) 7.4 %; Neutrophils # (auto) 7.46 K/uL (1.4-6.5); Neutrophils % (auto) 68.9 %; Platelet Count 337 K/uL (130-400); RDW Coefficient of Variation 13.3 % (11.5-14.5); RDW Standard Deviation 42.7 fL (36.4-46.3); White Blood Count 10.81 K/uL (4.8-10.8)
--- NOTE | 2021-10-19 10:52 | Cardiology Progress Note ---
Date of Service October 19, 2021 Assessment & Plan (1) Chest pain: (2) CAD (coronary artery disease): (3) ST segment changes on electrocardiogram: (4) NSTEMI (non-ST elevated myocardial infarction): (5) Afib: (6) HTN, goal below 140/80: Plan: The patient underwent a cardiac catheterization today and has three-vessel coronary artery disease that will require open heart surgery and coronary artery bypass. I have contacted cardiothoracic surgery, Dr. Humphrey, at [facility] [place] who has accepted the patient. The patient will be transferred by ground as soon as a bed is available. Admission and Anticipated Discharge Date Admission Date: October 18, 2021 Subjective The patient has no complaints following his heart catheterization. Review of Systems Review of Systems: Review of Systems: See HPI for pertinent positives. All other 10 point review of systems are negative. Physical Exam Physical Exam: General: no acute distress and stated age Head: normocephalic, no masses, lesions, tenderness or abnormalities Eyes: conjunctiva are pink and non-injected, sclera clear Neck: supple, no adenopathy, no bruits, normal jugular venous pulse, no hepatojugular reflux Chest: normal shape and normal respiratory effort Lungs: clear to auscultation and percussion Cardiac Exam: - regular rate & rhythm, no murmurs gallops or rubs - normal S1, normal S2 Pulses: 2(+) throughout Abdomen: abdomen soft, non-tender, no abnormal masses and no hepatosplenomegaly Musculoskeletal: no gait disturbance, no joint inflammation, no deforming arthritis Extremities: no edema and no cyanosis Neuro: grossly normal exam Results & Data ([facility]) Vital Signs (Past 12 Hours) Vital Signs Temp Pulse Pulse Resp BP Pulse Ox 10/19/21 10:21 68 19 138/86 95 10/19/21 10:00 72 16 158/94 H 96 10/19/21 09:45 75 20 135/77 96 10/19/21 09:30 73 20 123/82 94 10/19/21 09:20 68 18 137/79 95 10/19/21 09:05 70 18 130/74 95 10/19/21 08:12 75 18 123/77 10/19/21 08:00 74 10/19/21 06:58 36.6 C 76 19 135/76 96 10/18/21 23:54 36.8 C 75 18 132/88 97 10/18/21 23:02 86 Laboratory Results Laboratory Results - last 24 hr 10/18/21 10/18/21 10/18/21 11:28 11:42 11:42 WBC RBC Hgb Hct MCV MCH MCHC Plt Count APTT 38.6 H PTT Ratio 1.4 POC Glucose 157 H Troponin I High Sens 48.7 H 10/18/21 10/18/21 10/18/21 16:17 18:56 20:19 WBC RBC Hgb Hct MCV MCH MCHC Plt Count APTT 42.0 H PTT Ratio 1.5 POC Glucose 198 H 189 H Troponin I High Sens 10/19/21 10/19/21 10/19/21 03:13 05:30 10:38 WBC Pending RBC Pending Hgb Pending Hct Pending MCV Pending MCH Pending MCHC Pending Plt Count Pending APTT 48.8 H* PTT Ratio 1.8 POC Glucose 193 H Troponin I High Sens Medications Administered Current Inpatient Medications Acetaminophen (Acetaminophen 325 Mg Tab) 650 mg PO Q4H PRN PRN Reason: Pain or Fever Stop: 11/17/21 05:24 Last Admin: 10/18/21 20:32 Dose: 650 mg Documented by: Allopurinol (Allopurinol 300 Mg Tab) 300 mg PO [facility] Stop: 11/17/21 08:59 Last Admin: 10/19/21 07:26 Dose: 300 mg Documented by: Aspirin (Aspirin 81 Mg Ectab) 81 mg PO [facility] Stop: 11/18/21 08:59 Last Admin: 10/19/21 07:26 Dose: 81 mg Documented by: Atorvastatin Calcium (Atorvastatin 20 Mg Tab) 20 mg PO [facility] Stop: 11/17/21 08:59 Last Admin: 10/19/21 07:26 Dose: 20 mg Documented by: Dextrose (Dextrose 50% 50 Ml Syringe) 25 - 50 ml IV UD PRN; Protocol PRN Reason: Hypoglycemia Protocol Stop: 11/17/21 05:24 Ezetimibe (Ezetimibe 10 Mg Tablet) 10 mg PO [facility] Stop: 11/17/21 20:59 Last Admin: 10/18/21 20:33 Dose: 10 mg Documented by: Gabapentin (Gabapentin 400 Mg Cap) 400 mg PO [facility] Stop: 11/17/21 20:59 Last Admin: 10/18/21 20:33 Dose: 400 mg Documented by: Glucagon (Glucagon For Inj 1 Mg Vial) 1 mg SQ UD PRN; Protocol PRN Reason: Hypoglycemia Protocol Stop: 11/17/21 05:24 Glucose (Glucose 10 Tabs/Tube) 4 - 8 tabs PO UD PRN; Protocol PRN Reason: Hypoglycemia Protocol Stop: 11/17/21 05:24 Glucose (Glucose 40% Gel 15 Gm Tube) 15 - 30 gm PO UD PRN; Protocol PRN Reason: Hypoglycemia Protocol Stop: 11/17/21 05:24 Promethazine HCl 12.5 mg/ (Sodium Chloride) 50.5 mls @ 202 mls/hr IV Q6H PRN PRN Reason: Nausea And Vomiting Stop: 11/17/21 04:31 Heparin Sodium/Dextrose (Heparin Sodium/Dextrose) 25,000 units in 500 mls @ 36 mls/hr IV .[id number] [facility]; Protocol Stop: 11/17/21 07:59 Last Admin: 10/19/21 08:00 Dose: Not Given Documented by: Insulin Aspart (Insulin Aspart Per Unit) 0 units SC ACHS [facility] Stop: 11/18/21 05:59 Insulin Glargine (Insulin Glargine Solostar 100 Units/Ml 3 Ml Pen) 15 units SC DAILY [facility] Stop: 11/18/21 08:59 Last Admin: 10/19/21 09:35 Dose: 15 units Documented by: Lisinopril (Lisinopril 20 Mg Tab) 20 mg PO BID [facility] Stop: 11/17/21 08:59 Last Admin: 10/19/21 07:26 Dose: 20 mg Documented by: Lorazepam (Lorazepam 2 Mg/1 Ml Vial) 1 mg IV Q4H PRN PRN Reason: Anxiety Stop: 11/17/21 04:31 Metoprolol Succinate (Metoprolol Succ 50mg Ext Rel Tab) [facility] Stop: 11/17/21 08:59 Last Admin: 10/19/21 07:26 Dose: 50 mg Documented by: Miscellaneous (Carbohydrates For Hypoglycemia ) 15 - 30 gm PO UD PRN PRN Reason: Hypoglycemia Protocol Stop: 11/17/21 05:24 Morphine Sulfate (Morphine Sulfate 4 Mg/Ml 1 Ml Carp\Vial) 4 mg IV Q4H PRN PRN Reason: Pain Stop: 11/01/21 04:31 Nitroglycerin (Nitroglycerin Sl 0.4 Mg/Tab Tab) 0.4 mg SL Q5M PRN PRN Reason: Chest Pain Stop: 11/17/21 05:24 Last Admin: 10/18/21 19:48 Dose: 0.4 mg Documented by: Oxycodone HCl (Oxycodone Hcl Ir 5 Mg Tab (Immediate Release)) 5 - 10 mg PO QID PRN PRN Reason: Pain Stop: 11/01/21 04:31 Pantoprazole Sodium (Pantoprazole 40 Mg Tab) 40 mg PO DAILY [place] Stop: 11/17/21 08:59 Last Admin: 10/19/21 07:26 Dose: 40 mg Documented by:
--- NOTE | 2021-10-19 11:18 | Discharge Summary ---
Date of Service October 19, 2021 Admission HPI Per Admitting Provider Medical history significant for CAD sp stenting, PAF sp ablation on Eliquis, hypertension; hyperlipidemia, DM2 on oral medications, FAUSTO on CPAP, chronic anemia (baseline hemoglobin of 13), gout, past tobacco abuse Last January 2021 for A. fib with RVR 10 days ago, patient underwent outpatient right shoulder surgery at [facility]. At home after the procedure, patient experienced substernal discomfort relieved by Tums. Patient was watching television with his last night when he experienced recurrence of achy chest discomfort all over with some radiation to the left arm with shortness of breath and diaphoresis. No cough symptoms. Discomfort relieved by nitroglycerin intake at home. Patient compliant with home medications. Denies unusual stress. Patient brought to the ER by . Aspirin and Nitropaste administered at the ER. Patient currently comfortable. 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 Discharge Data Allergies Allergy/AdvReac Type Severity Reaction Status Date / Time No Known Allergies Allergy Verified 10/18/21 02:28 Consultations 10/18/21 03:24 ED Decision to Admit Stat 10/18/21 05:25 Consult Cardiology Routine Procedures Performed Operation Date: 10/19/21 09:30 Actual Procedures p Cath, Left with Krishan and Gina - Gee Keller DO Ordered Studies 10/19/21 07:14 CL Cath Imgs for PACS use only Routine Hospital Course (1) NSTEMI (non-ST elevated myocardial infarction): hx CAD sp stenting Afib post ablation, patient NSR on Eliquis hypertension; stable hyperlipidemia, on statin rx DM2 on oral medications, suboptimal control as of hemoglobin A1c of 8 last January 2021 FAUSTO on CPAP chronic anemia, hemoglobin at baseline Recent right shoulder surgery Past tobacco abuse PCU Continue continue antiplatelet Rx, beta-corey, and statin medications Follow troponin TTE, Cardiology consult Re: ACS N.p.o. until patient seen by cardiology in anticipation of procedure. Hold Eliquis until patient seen by Cardiology. IV heparin for NSTEMI while Eliquis on hold (initiate 12 hours after last dose of Eliquis taken by patient last night) Update lipid profile Basal insulin adjusted for n.p.o. status, ISS BG goal 1 10-1 40, update hemoglobin A1c Orthopedics consult for postop evaluation of right shoulder if patient still here by tomorrow (Postop follow-up visit at [facility] originally scheduled for tomorrow.) DVT prophylaxis. IV heparin Full code Text document was generated using [email or web address] voice recognition software. It may contain grammatical or spelling errors. Kindly contact undersigned for clarification of any documentation item in question. Discharge Plan Discharge Items Reason For Visit: ACS Follow-up/Referrals: Ashish Arias, PABrittneyC [Primary Care Provider] - Medications and DC Order Prescriptions: No Action aspirin 81 mg Tablet,Delayed Release (Dr/Ec) 81 mg PO QAM RF: 0 allopurinol 300 mg tablet 300 mg PO QAM RF: 0 Trulicity 1.5 mg/0.5 mL pen injector 1.5 mg SUBCUT WK RF: 0 chlorthalidone 25 mg tablet 25 mg PO DAILY RF: 0 ezetimibe 10 mg tablet 10 mg PO HS RF: 0 lisinopril 20 mg tablet 20 mg PO BID RF: 0 omeprazole 40 mg capsule,delayed release(DR/EC) 40 mg PO DAILY RF: 0 oxycodone-acetaminophen 5-325 mg tablet 1 tab PO UD PRN (Reason: Pain) RF: 0 Ozempic 0.25 mg or 0.5 mg(2 mg/1.5 mL) pen injector 2 mg SUBCUT UD RF: 0 metoprolol succinate 50 mg tablet extended release 24 hr 50 mg PO QAM RF: 0 glipizide 10 mg tablet extended release 24hr 10 mg PO BID RF: 0 gabapentin 400 mg capsule 400 mg PO HS RF: 0 Eliquis 5 mg tablet 5 mg PO BID RF: 0 Lipitor 20 mg 20 mg PO DAILY RF: 0 Krames/Other Patient Handouts: Managing Type 2 Diabetes, 5 Steps for Eating Healthier Admission Data Admit Date/Time: 10/18/21 04:26 Attending Provider: Gladis Maradiaga Admit Provider: Jose Juan Strickland Primary Care Provider: Ashish Arias Other Providers: Jose Juan Strickland ; Familia Tobias ; Bryson Vizcaino ; Prateek Hernadez ; Ryne Good ; Gee Keller ; Petros Butler ; Candace Garcia ; Micheline Groves ; Aleisha Moore. ; Raudel Miranda
[2021-10-19] MEDS: INSULIN ASPART PER UNIT SC SCH ×2 (13:57→16:35)
--- NOTE | 2021-10-19 14:46 | Electrocardiogram Report ---
Test Reason : Blood Pressure : / mmHG Vent. Rate : 089 BPM Atrial Rate : 089 BPM P-R Int : 168 ms QRS Dur : 086 ms QT Int : 368 ms P-R-T Axes : 075 069 053 degrees QTc Int : 447 ms Normal sinus rhythm Septal infarct , age undetermined Cannot rule out Inferior infarct , age undetermined Abnormal ECG When compared with ECG of 18-OCT-2021 01:16, Septal infarct is now Present Minimal criteria for Inferior infarct are now Present ST no longer depressed in Anterior leads Nonspecific T wave abnormality no longer evident in Lateral leads Confirmed by Kemar Jimenez ([id number]) on 10/19/2021 2:46:14 PM Referred By: REFERRED SELF Confirmed By:Kemar Jimenez
--- NOTE | 2021-10-19 14:52 | Electrocardiogram Report ---
Test Reason : Blood Pressure : / mmHG Vent. Rate : 075 BPM Atrial Rate : 075 BPM P-R Int : 174 ms QRS Dur : 086 ms QT Int : 382 ms P-R-T Axes : 046 019 058 degrees QTc Int : 426 ms Normal sinus rhythm Possible Inferior infarct (cited on or before 18-OCT-2021) Abnormal ECG When compared with ECG of 18-OCT-2021 19:53, (unconfirmed) No significant change was found Confirmed by Kemar Jimenez ([id number]) on 10/19/2021 2:52:39 PM Referred By: REFERRED SELF Confirmed By:Kemar Jimenez
== END 2021-10-19 19:00 | disposition short-term general hospital (02) | DRG 282 ==
LOC: ED 01:07 → 2S 04:26

== ENCOUNTER 2023-05-19 08:23 | Observation (INO) ==
--- NOTE | 2023-01-31 13:34 | PAT Medication Instructions ---
Medication Instructions Date of Service January 31, 2023 Home Medications Medication Instructions Recorded metoprolol tartrate 25 mg tablet 25 mg PO BID #180 tabs 03/03/22 allopurinol 300 mg tablet 300 mg PO QAM ezetimibe 10 mg tablet 10 mg PO HS omeprazole 40 mg capsule,delayed release 40 mg PO HS metformin 500 mg tablet 1,000 mg PO QAM tamsulosin 0.4 mg capsule (Flomax) 0.4 mg PO HS metoprolol tartrate 25 mg tablet 25 mg PO BID metformin 850 mg tablet 850 mg PO QPM albuterol sulfate 90 mcg/actuation aerosol inhaler 2 puff inhalation Q6H PRN Shortness Of Breath Or Wheezing aspirin 81 mg tablet,delayed release 81 mg PO HS fluticasone furoate 200 mcg-vilanterol 25 mcg/dose inhalation powder (Breo Ellipta) 1 inh inhalation HS glipizide 10 mg tablet, extended release 24 hr 10 mg PO BID semaglutide 1 mg/dose (4 mg/3 mL) subcutaneous pen injector (Ozempic) 2 mg subcut Q7D terazosin 5 mg capsule 5 mg PO BID gabapentin 400 mg capsule 400 mg PO HS atorvastatin 80 mg tablet 80 mg PO QAM celecoxib 200 mg capsule 200 mg PO QAM ASK your surgeon for instructions celecoxib 200 mg capsule 200 mg PO QAM STOP taking 7 days before surgery semaglutide 1 mg/dose (4 mg/3 mL) subcutaneous pen injector (Ozempic) 2 mg subcut Q7D DO NOT take the morning of surgery metformin 500 mg tablet 1,000 mg PO QAM glipizide 10 mg tablet, extended release 24 hr 10 mg PO BID Take morning of surgery With a small sip of water, OTHERWISE NOTHING TO EAT OR DRINK AFTER MIDNIGHT: allopurinol 300 mg tablet 300 mg PO QAM metoprolol tartrate 25 mg tablet 25 mg PO BID albuterol sulfate 90 mcg/actuation aerosol inhaler 2 puff inhalation Q6H PRN Shortness Of Breath Or Wheezing (use if needed; please bring with you to hospital day of surgery if possible) terazosin 5 mg capsule 5 mg PO BID atorvastatin 80 mg tablet 80 mg PO QAM Take evening before surgery ezetimibe 10 mg tablet 10 mg PO HS omeprazole 40 mg capsule,delayed release 40 mg PO HS tamsulosin 0.4 mg capsule (Flomax) 0.4 mg PO HS metoprolol tartrate 25 mg tablet 25 mg PO BID metformin 850 mg tablet 850 mg PO QPM albuterol sulfate 90 mcg/actuation aerosol inhaler 2 puff inhalation Q6H PRN Shortness Of Breath Or Wheezing (if needed) aspirin 81 mg tablet,delayed release 81 mg PO HS fluticasone furoate 200 mcg-vilanterol 25 mcg/dose inhalation powder (Breo Ellipta) 1 inh inhalation HS glipizide 10 mg tablet, extended release 24 hr 10 mg PO BID terazosin 5 mg capsule 5 mg PO BID gabapentin 400 mg capsule 400 mg PO HS Other Notes If you have any questions please call us at [phone] or [phone] or [phone] or [phone]
--- NOTE | 2023-02-07 13:01 | Anesthesiology Consultation ---
Date of Service February 07, 2023 Assessment & Plan (1) Encounter for pre-operative examination: - Check BSG AM DOS - Infectious disease screening: Per assessment on 02/07/23: No known infectious disease contacts or current infectious disease symptoms. No noted Covid positive test result in past 90 days. - Outpatient joint assessment: Pt currently scheduled for inpatient pathway. If surgeon requests review for outpatient joint pathway, patient is not recommended candidate for outpatient joint program from anesthesia standpoint based on available information. - Semaglutide instructions: Patient takes on Sundays. Patient informed at PAT visit to stop 7 days prior to surgery- voiced understanding. DOS 03/10. Last dose will be 02/26/23. Patient advised to check with prescriber to see if alternative diabetic management changes recommended while holding Semaglutide- if so, patient to call back to PAT to update chart and discuss if any further preop medication instructions needed. - Cardiology visit (01/18/23): "The patient is stable from cardiovascular standpoint. He demonstrates excellent control of his blood pressure and LDL cholesterol. His HDL cholesterol remains low. Fortunately, his coronary artery disease remains quiescent his current medical regimen. He does demonstrate excellent functional status without symptoms. He is an acceptable cardiac risk for joint replacement surgery without further testing." - Elevated A1C: 9.5% on preop labs perspective 02/07/23. Received response from Bhvaani at surgeon's office: Given elevated A1C, surgeon will have patient rescheduled to 05/19/23- during that time, patient has been made aware to contact PCP for better diabetic management and he will have updated A1C 04/2023 to determine if able to proceed with rescheduled DOS. Chart Review Chart Review: Patient seen in Pre Admission Testing Teaching & Discussion Pre-Anesthesia Teaching/Discussion Notes: Instructed NPO after midnight before surgery,except medications with 15 cc of water. Medication instructions provided according to the PAT guidelines. History Surgery Operation Date: 03/10/23 08:00 Proposed Procedures p Right Reverse Total Shoulder Arthroplasty - Mitch Mcneil DO Height/Weight Height: 5 ft 9 in Weight: 118.1 kg Allergies Allergy/AdvReac Type Severity Reaction Status Date / Time No Known Allergies Allergy Verified 01/31/23 08:25 Medications Home Medications Medication Instructions Recorded Confirmed Last Taken allopurinol 300 mg tablet 300 mg PO QAM 02/06/21 01/31/23 02/06/21 ezetimibe 10 mg tablet 10 mg PO HS 02/06/21 01/31/23 02/05/21 omeprazole 40 mg capsule,delayed 40 mg PO HS 10/18/21 01/31/23 Unknown release metformin 500 mg tablet 1,000 mg PO QAM 12/31/21 01/31/23 Unknown tamsulosin 0.4 mg capsule (Flomax) 0.4 mg PO HS 12/31/21 01/31/23 Unknown metoprolol tartrate 25 mg tablet 25 mg PO BID #180 tabs 03/03/22 01/31/23 Unknown metformin 850 mg tablet 850 mg PO QPM 08/14/22 01/31/23 Unknown albuterol sulfate 90 mcg/actuation 2 puff inhalation Q6H PRN 08/15/22 01/31/23 Unknown aerosol inhaler Shortness Of Breath Or Wheezing aspirin 81 mg tablet,delayed 81 mg PO HS 08/15/22 01/31/23 Unknown release fluticasone furoate 200 1 inh inhalation 08/15/22 01/31/23 Unknown mcg-vilanterol 25 mcg/dose inhalation powder (Breo Ellipta) glipizide 10 mg tablet, extended 10 mg PO BID 08/15/22 01/31/23 Unknown release 24 hr semaglutide 1 mg/dose (4 mg/3 mL) 2 mg subcut Q7D 08/15/22 01/31/23 08/07/22 subcutaneous pen injector (Ozempic) terazosin 5 mg capsule 5 mg PO BID 08/15/22 01/31/23 Unknown gabapentin 400 mg capsule 400 mg PO 01/18/23 01/31/23 Unknown atorvastatin 80 mg tablet 80 mg PO QA 01/31/23 01/31/23 Unknown celecoxib 200 mg capsule 200 mg PO QAM 01/31/23 01/31/23 Unknown Past Medical History Medical History Anxiety BPH (benign prostatic hyperplasia) CAD (coronary artery disease) CABG x3 (09/2021) stent x1 (2009) Diabetes mellitus, type 2 Diabetic peripheral neuropathy GERD (gastroesophageal reflux disease) Gout History of atrial fibrillation s/p ablation + clip Hx of wheezing Inhaler PRN seasonal allergies/wheezing, denies asthma hx Hyperlipidemia Hypertension Myocardial Infarction 2009 > stent x1 Sleep apnea CPAP (compliant) ST segment changes on electrocardiogram ST depression in leads V4-V6 Urinary urgency Exercise / Class Metabolic Activity III < 4 Walking/Shop/Light housework Past Family History Family History Grandmother (Maternal) Family history of diabetes mellitus Other No family history of adverse response to anesthesia Past Surgical History Surgical History History of cardiac cath 2009 History of cardiac radiofrequency ablation for Afib History of coronary artery bypass graft CABG x3 (09/2021) History of heart artery stent stent x1 (2009) History of repair of left rotator cuff History of total right hip replacement History of wisdom tooth extraction Hx of arthroscopy of shoulder Right Hx of colonoscopy Past Anesthesia History No Hx of Anesthesia Complications and No Family Hx of Anesthesia Complications History of PONV No Hx of PONV and No Hx of Motion Sickness Social History Smoking Status: Former smoker tobacco type: cigarettes Do You Dip or Chew Tobacco: Yes (1 can/1-2 days; advised none DOS) Smoking End Date: Quit 30 years ago Hx Alcohol Use: Yes Alcohol type: hard liquor alcohol intake frequency: holidays/special occasions only Hx Substance Use: No substance use type: does not use Review of Systems B/L armpit rash- patient states that surgeon has been made aware/does not feel any issue from their perspective for upcoming surgery. Patient was advised to continue to monitor and contact PCP if persistent/worsening. Patient denies chest pain, shortness of breath, fever, chills, cough, wheezing, palpitations. Physical Exam Vital Signs VITALS BP 125/81 P 71 TEMP 98.0 SP02 96%RA RESP 16 PHYSICAL Full cervical extension range of motion. Full TMJ range of motion. TMD 4 finger breaths Mallampati Score 1 Dentition: intact Lungs: clear throughout to auscultation Cardiac: regular rate and rhythm, no murmurs noted Spine: normal Carotid arteries: negative bruit Extremities: 1+ LE edema, b/l armpit rash Lab Results Anesthesia Preop Results Results Anesthesia Widget: WBC 9.87 K/ul (4.8-10.8) 02/07/23 Hgb 13.3 g/dl (14.0-18.0) L 02/07/23 Hct 39.1 % (42.0-52.0) L 02/07/23 Plt 318 K/uL (130-400) 02/07/23 Na 138 mmol/L (136-145) 02/07/23 K 4.9 mmol/L (3.5-5.1) 02/07/23 Cl 100 mmol/L (98-107) 02/07/23 CO2 31 mmol/L (21-32) 02/07/23 BUN 15 mg/dl (6-23) 02/07/23 Creat 0.69 mg/dl (0.6-1.4) 02/07/23 Glucose Level 120 mg/dl (70-99(Fasting)) H 02/07/23 PT 10.3 Seconds (9.0-12.0) 02/07/23 PTT 26.7 Seconds (21.0-31.0) 02/07/23 INR 0.9 (0.9-1.1) 02/07/23 HA1c 9.5 % (4.5-5.6) H 02/07/23 Blood Type B Positive 02/07/23 Antibody Screen NEGATIVE 02/07/23 Testing Laboratory Results Elevated A1C- Bhavani at surgeon's office made aware Electrocardiogram Date: 08/14/22 NSR at 87bpm. Possible LAE. iRBBB. NS ST/TWA. *Poor data quality. Chest X-Ray Date: 02/07/23 FINDINGS: No pneumothorax. No pleural effusions. No focal lung consolidations to suggest a pneumonia. No evidence for pulmonary edema. The cardiac silhouette is top normal in size. There are poststernotomy changes. Stable metallic density overlying the cardiac silhouette. No acute fractures. IMPRESSION: No significant change compared to the prior study. No acute process. Echocardiogram Date: 10/20/21 LVEF 55-59%. No LV wall motion abnormalities. Moderate eccentric AR. Mild MR. Grade II DD. Stress Test Date: 12/12/18 Type: nuclear Lexiscan nuclear stress test negative for inducible ischemia. Normal gated SPECT imaging with a calculated ejection fraction of 69%. Cardiac Catheterization Date: 10/19/21 The patient has severe three-vessel coronary artery disease including a proximal LAD stenoses. Left ventricular systolic function is preserved with some hypokinesis of the distal anterior and apical myocardium. > CABG x3
--- NOTE | 2023-05-18 07:09 | History & Physical Report ---
Date of Service May 18, 2023 Assessment & Plan (1) Rotator cuff tear arthropathy of right shoulder: We will proceed with a right reverse shoulder arthroplasty. Postoperatively he will be placed in a sling and kept overnight in the hospital for postop medical management. He plans to use Microbion upon discharge. History of Present Illness Chief Complaint: Cuff tear arthropathy of the right shoulder. Primary Care Provider: Ashish Ribeiro Juana Walls is a pleasant 67-year-old male who has been dealing with chronic increasing right shoulder pain. He states he has a history of a right rotator cuff repair done by Dr. Gallagher about 2 years ago. He is still dealing with significant pain and weakness of the shoulder. X-rays have shown advanced arthritis and cuff tear arthropathy. After failing extensive conservative treatment, he has elected to proceed with a reverse shoulder arthroplasty. . Allergies Allergy/AdvReac Type Severity Reaction Status Date / Time No Known Allergies Allergy Verified 05/12/23 11:23 Home Medications Medication Instructions Recorded Confirmed Type allopurinol 300 mg tablet 300 mg PO QAM 02/06/21 05/12/23 History ezetimibe 10 mg tablet 10 mg PO HS 02/06/21 05/12/23 History omeprazole 40 mg capsule,delayed 40 mg PO HS 10/18/21 05/12/23 History release metformin 500 mg tablet 1,000 mg PO QAM 12/31/21 05/12/23 History tamsulosin 0.4 mg capsule (Flomax) 0.4 mg PO HS 12/31/21 05/12/23 History metoprolol tartrate 25 mg tablet 25 mg PO BID #180 tabs 03/03/22 05/12/23 Rx metformin 850 mg tablet 850 mg PO QPM 08/14/22 05/12/23 History albuterol sulfate 90 mcg/actuation 2 puff inhalation Q6H PRN 08/15/22 05/12/23 History aerosol inhaler Shortness Of Breath Or Wheezing aspirin 81 mg tablet,delayed 81 mg PO HS 08/15/22 05/12/23 History release glipizide 10 mg tablet, extended 10 mg PO BID 08/15/22 05/12/23 History release 24 hr semaglutide 1 mg/dose (4 mg/3 mL) 2 mg subcut Q7D 08/15/22 05/12/23 History subcutaneous pen injector (Ozempic) terazosin 5 mg capsule 5 mg PO BID 08/15/22 05/12/23 History gabapentin 400 mg capsule 400 mg PO HS 01/18/23 05/12/23 History atorvastatin 80 mg tablet 80 mg PO QAM 01/31/23 05/12/23 History celecoxib 200 mg capsule 200 mg PO QAM 01/31/23 05/12/23 History cyanocobalamin (vitamin B-12) 3,000 mcg sublingual QAM 05/12/23 05/12/23 History 1,000 mcg sublingual tablet furosemide 40 mg tablet 40 mg PO QAM 05/12/23 05/12/23 History Past Med/Surg History Medical History Spinal stenosis History of COVID-2020, mild symptoms BPH (benign prostatic hyperplasia) Urinary urgency Hx of wheezing Inhaler PRN seasonal allergies/wheezing, denies asthma hx ST segment changes on electrocardiogram ST depression in leads V4-V6 Diabetic peripheral neuropathy CAD (coronary artery disease) CABG x3 (09/2021) stent x1 (2009) Gout GERD (gastroesophageal reflux disease) Diabetes mellitus, type 2 states A1C decreased recently to 8.5 Anxiety Hypertension Hyperlipidemia History of atrial fibrillation s/p ablation + clip Myocardial Infarction 2009 > stent x1, patient denies DE Sleep apnea CPAP (compliant) Surgical History Hx of colonoscopy Hx of arthroscopy of shoulder Right History of coronary artery bypass graft CABG x3 (09/2021) History of repair of left rotator cuff History of total right hip replacement History of wisdom tooth extraction History of cardiac radiofrequency ablation for Afib History of heart artery stent stent x1 (2009) History of cardiac cath 2009 Family History Grandmother (Maternal) Family history of diabetes mellitus Other No family history of adverse response to anesthesia Social History Smoking Status: Never smoker Tobacco Type: Smokeless Tobacco (Dip or Chew) Smoking End Date: Quit 30 years ago; Second Hand Exposure: No; Do You Dip or Chew Tobacco: Yes; Tobacco Cessation Education Requested by Patient: No Hx Alcohol Use: Yes Alcohol type: hard liquor Hx Substance Use: No Preferred Language: Stateless Communication Ability: Effective 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 Physical Exam On physical examination of the right shoulder, he has decreased range of motion. He has 4 out of 5 motor strength with full can test and external rotation.. Constitutional WD/WN, vitals as above Eyes PERRL, conjunctivae normal, anicteric sclerae ENMT external ear and nose normal, oropharynx normal Neck trachea midline, no thyromegaly Respiratory normal respiratory effort Cardiovascular RRR, no murmur, no edema Gastrointestinal (Abdomen) normal bowel sounds, soft, nontender, no hepatosplenomegaly Psychiatric A+Ox3, euthymic affect Results & Data Results & Data Laboratory Results . Diagnostic Findings X-rays of the right shoulder show signs of cuff tear arthropathy with advanced glenohumeral arthritis and some superior migration of the humeral head on the glenoid.. PG Care Time/CCT Total # of Minutes Spent Total Time Spent with Patient: Total time spent is greater than 50% in coordination of care (as documented) at patient's floor/unit and/or counseling patient: Coding Level of Care Code None Diagnoses Rotator cuff tear arthropathy of right shoulder M75.101; M12.811
[~2023-05-19 08:23] MED LIST: ACETAMINOPHEN 500 MG TAB PO SCH; BUPIVACAINE 0.5 % 5 MG/1 ML PF 10ML VIAL ONE; FAMOTIDINE 20 MG TAB PO SCH; GABAPENTIN 300 MG CAP PO SCH; LR 15ML/HR IV SCH; LR 60ML/HR IV SCH; ORTHO JOINT MIX INFIL SCH; TRANEXAMIC ACID 1,000 MG **IV Intra-op IV SCH; TRANEXAMIC ACID 1,000 MG **IV Pre-op IV SCH; ceFAZolin 2000MG 2,000 MG/15 ML SYR IV SCH; dexAMETHasone 4 MG TAB PO SCH
[2023-05-19] MEDS ORDERED: fentaNYL citrate PF 100 MCG/2 ML VIAL ONE ×2 (08:50→12:49)
[2023-05-19] MEDS ORDERED: MIDAZOLAM HCL 1 MG/ML 2ML VIAL ONE ×2 (08:50→12:49)
[2023-05-19] MEDS ORDERED: fentaNYL citrate PF 100 MCG/2 ML VIAL IV PRN (10:08)
[2023-05-19] MEDS ORDERED: ePHEDrine sulfate 50 MG/ML AMP IV PRN (10:08)
[2023-05-19] MEDS ORDERED: ONDANSETRON INJ 2 MG/ML 2 ML VIAL IV PRN ×2 (10:08→16:13)
[2023-05-19] MEDS ORDERED: ATROPINE SULFATE 0.1 MG/ML 10ML SYR IV PRN (10:08)
--- NOTE | 2023-05-19 10:43 | History & Physical Bridge Note ---
Date of Service May 19, 2023 History & Physical Bridge Note I have examined the patient, reviewed the History & Physical and in the interval since the performance of the History & Physical I have noted the following changes of clinical significance: no changes noted
[2023-05-19 11:24] LABS: Partial Thromboplastin Time 27 Seconds (21-31); Prothrombin Time 10.6 Seconds (9.0-12.0)
[2023-05-19] MEDS ORDERED: ONDANSETRON INJ 2 MG/ML 2 ML VIAL ONE (12:52)
[2023-05-19] MEDS ORDERED: PROPOFOL IV EMULSION 10 MG/ML 20 ML VIAL IV ONE (12:52)
[2023-05-19] MEDS ORDERED: ORTHO JOINT ANESTHETIC ONE (13:16)
[2023-05-19] MEDS ORDERED: METOCLOPRAMIDE HCL INJ 5 MG/ML 2 ML VIAL ONE (13:48)
[2023-05-19] MEDS ORDERED: LIDOCAINE 2% 2 ML VIAL/AMP(20MG/ML) INFIL ONE (13:48)
[2023-05-19] MEDS ORDERED: PHENYLEPHRINE 100MCG/ML 10ML SYR IV ONE (13:49)
[2023-05-19] MEDS ORDERED: ePHEDrine sulfate 50 MG/5 ML SYR ONE (14:31)
--- NOTE | 2023-05-19 14:35 | Operative Report ---
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 long head of the biceps tendon Post-Op Diagnosis: Cuff tear arthropathy of the right shoulder with tendinopathy long head of biceps tendon I identified the patient and participated in the time-out.: Yes Procedure Operation Date: 05/19/23 10:00 Actual Procedures p Right Reverse Total Shoulder Arthroplasty(Right) with open biceps tenodesis as a distinct and separate procedure (modifier 59)- Mitch Mcneil DO Surgeon Mitch Mcneil DO Water Pollution Control Technician Mitch Mas PA-C Estimated Blood Loss 200 Findings Consistent with Post-Op Diagnosis Specimens Right humeral head Description of Procedure A CPT code modifier 59: The long head of the biceps tendon was enlarged and inflamed consistent with tendinopathy. A tenodesis was opted. This was a separate and distinct portion of the procedure. For these reasons, a CPT code modifier 59 will be added to this case. Implants used: I used a [employer] Comprehensive reverse total shoulder arthroplasty system with a size 16 press fit micro humeral stem, a +3 offset humeral tray and a +3 retentive humeral bearing, a 25 mm small augment baseplate with a 6.5 mm central screw and superior and inferior locking screws, and a size 40 mm eccentric glenosphere. Curtis arrived at [facility] for the above procedure. He was seen in the preoperative holding area and the operative extremity was identified and signed. He was given a preoperative antibiotic, TXA, and an interscalene nerve block. He was taken back to the operating room, laid on table in supine position, and put under general anesthesia. He was then put into the beachchair position. The shoulder was then prepped and draped in sterile fashion. A timeout was done and the patient and the operative extremity was properly identified. A deltopectoral approach was used. Dissection was taken down through the fascia and the deltoid was retracted laterally and the conjoined tendon was retracted medially. The anterior shoulder was exposed. The biceps groove was opened up and the biceps tendon was examined extensively. The biceps tendon demonstrated enlargement and inflammatory changes consistent with longstanding inflammation in the context of osteoarthritis and cuff arthropathy. The long head of the biceps tendon was then tenodesed to the upper border of the pectoralis major. This was a separate and distinct portion of the procedure. The subscapularis was then directly released off the lesser tuberosity with a peel technique. The inferior capsule was released and the humeral head was dislocated. A canal finding reamer was sent down the center of the humeral canal. Sequential reaming up to a size 16 reamer was done. Off that reamer, a proximal humeral resection guide was placed. The proximal humerus was resected at 135 of inclination and 25 of retroversion. Osteophytes were then removed and the glenoid was exposed. Time was spent doing a complete capsular and labral release. The glenoid guide was then placed in the inferior aspect of the glenoid. A 3.2 mm Steinmann pin was then placed into the glenoid vault at 10 of inclination. The glenoid baseplate was then reamed. The final size 25 mm small augment baseplate was then impacted in the place. A 6.5 mm central screw was then placed followed by superior and inferior locking screws. A 40 mm eccentric glenosphere was then impacted into place. Surrounding soft tissues were then injected with 100 cc an orthopedic pain control cocktail. The proximal humerus was then exposed. Sequential broaching of the humerus up to a size 16 broach was done. Off that broach a +3 offset and +3 retentive humeral tray was trialed. The shoulder was then reduced, brought through a full range of motion, and felt to be stable. The shoulder was then dislocated and the broach was removed. The final size 16 micro press-fit humeral stem was then impacted into place. A +3 retentive humeral bearing was then snapped onto a +3 offset humeral tray. The humeral tray was then impacted onto the humeral stem. The shoulder was once again reduced, brought through a full range of motion, and felt to be stable. The subscapularis was then tenodesed back to the lesser tuberosity with transosseous FiberWire sutures and side to side sutures with the arm in 45 of external rotation. A dilute betadyne lavage was then done for 3 minutes. The joint was then irrigated with normal saline solution. Hemostasis was obtained. The interval was closed with 2-0 Vicryl suture. The skin was then closed with 2-0 Vicryl and kirti. A Silverlon dressing was placed and the arm was rested in a regular arm sling. He was then extubated and transferred to a hospital bed. He taken to the postanesthesia care unit in stable condition. He marianela ated the procedure well. Mitch Mas PA-C, was present for the entire procedure. He was critical for patient positioning, prepping, draping, retraction exposure, wound closure and application of sterile dressing. I attest to the content of the Intraoperative Record and any orders documented therein. Any exceptions are noted below.
--- NOTE | 2023-05-19 15:37 | XRay Report ---
XR shoulder RT min 2V routine CLINICAL HISTORY: Post shoulder surgery TECHNIQUE: 3 views of the right shoulder were obtained. Comparison: Comparison is made to right shoulder radiographs 12/07/2022 FINDINGS: Patient is status post shoulder arthroplasty with expected postsurgical changes including soft tissue swelling and subcutaneous emphysema. No periarticular lucency or hardware fracture is seen. IMPRESSION: Expected postoperative appearance status post placement of shoulder arthroplasty. ACT 112: Negative or not required by law. Electronically signed by: Solo Niño M.D. 05/19/2023 3:35 PM
[2023-05-19] MEDS ORDERED: oxyCODONE HCL IR 5 MG TAB (IMMEDIATE RELEASE) PO PRN (16:13)
[2023-05-19] MEDS ORDERED: ALBUTEROL HFA 8 GM INHALER INH PRN (16:13)
[2023-05-19] MEDS ORDERED: bisacodyL 10 MG SUPP PR PRN (16:13)
[2023-05-19] MEDS ORDERED: MAGNESIUM HYDROXIDE SUSP 30 ML UDC PO PRN (16:13)
[2023-05-19] MEDS ORDERED: METOCLOPRAMIDE HCL INJ 5 MG/ML 2 ML VIAL IV PRN (16:13)
[2023-05-19] MEDS ORDERED: HYDROmorphone INJ 0.5 MG/0.5 ML SYR IV PRN (16:13)
[2023-05-19] MEDS ORDERED: NALOXONE HCL 0.4 MG/1 ML VIAL/CARP IV PRN (16:13)
[2023-05-19] MEDS ORDERED: PHARMACY GLYCEMIC MGMT CONSULT PRN (16:13)
--- NOTE | 2023-05-19 16:42 | Anesthesiology Progress Note ---
Date of Service May 19, 2023 Anesthesia Post Procedure Vital Signs Vital Signs: Temp Pulse Pulse Resp BP Pulse Ox O2 Del Method 05/19/23 16:17 36.7 C 78 17 119/73 93 Nasal Cannula 05/19/23 15:47 36.7 C 78 16 112/60 95 Nasal Cannula 05/19/23 15:30 75 14 117/64 94 Nasal Cannula 05/19/23 15:20 36.6 C 82 22 116/57 L 94 Nasal Cannula 05/19/23 15:10 78 18 101/53 L 96 Oxymask 05/19/23 15:00 76 22 115/56 L 96 Oxymask 05/19/23 14:50 36 C L 76 20 111/64 97 Oxymask 05/19/23 09:13 36.5 C 76 18 141/86 H 96 Room Air O2 Flow Rate 05/19/23 16:17 3 05/19/23 15:47 2 05/19/23 15:30 2 05/19/23 15:20 2 05/19/23 15:10 3 05/19/23 15:00 5 05/19/23 14:50 10 05/19/23 09:13 Transfer of Care Handoff Completed per policy Notes Mental Status: alert / awake / arousable Patient Amnestic to Procedure: Yes Nausea / Vomiting: adequately controlled Pain: adequately controlled Airway Patency, RR, SpO2: stable & adequate BP & HR: stable & adequate Hydration State: stable & adequate Anesthetic Complications: no major complications apparent and Pt Satisfied with anesthetic care
[2023-05-19] MEDS ORDERED: LANTUS PER UNIT CHARGE SC ONE (16:45)
[2023-05-19] MEDS ORDERED: GLUCOSE 40% GEL 15 GM TUBE PO PRN (16:45)
[2023-05-19] MEDS ORDERED: GLUCOSE 10 TAB/TUBE PO PRN (16:45)
[2023-05-19] MEDS ORDERED: CARBOHYDRATES FOR HYPOGLYCEMIA PO PRN (16:45)
[2023-05-19] MEDS ORDERED: DEXTROSE 50% 50 ML SYRINGE IV PRN (16:45)
[2023-05-19] MEDS ORDERED: GLUCAGON FOR INJ 1 MG VIAL IM PRN (16:45)
[2023-05-19] MEDS: KETOROLAC TROMETHAMINE 15 MG/ML VIAL IV SCH ×2 (16:56→23:25)
[2023-05-19] MEDS: SODIUM CHLORIDE 0.9% 1,000 ML IV SCH (16:57)
[2023-05-19] MEDS: INSULIN ASPART PER UNIT CHARGE SC SCH ×2 (17:07→21:01)
[2023-05-19] MEDS: DOCUSATE SODIUM 100 MG CAP PO SCH (20:33)
[2023-05-19] MEDS: TERAZOSIN HCL 5 MG CAP PO SCH (20:34)
[2023-05-19] MEDS: METOPROLOL TARTRATE 25 MG TAB PO SCH (20:37)
[2023-05-19] MEDS: ceFAZolin 2000MG 2,000 MG/15 ML SYR IV SCH (20:48)
[2023-05-19] MEDS ORDERED: TAMSULOSIN HCL 0.4 MG CAP PO SCH (21:00)
[2023-05-19] MEDS ORDERED: ASPIRIN 81 MG ECTAB PO SCH (21:00)
[2023-05-19] MEDS ORDERED: GABAPENTIN 400 MG CAP PO SCH (21:00)
[2023-05-19] MEDS ORDERED: PANTOprazole 40 MG TAB PO SCH (21:00)
[2023-05-19] MEDS ORDERED: SENNA 8.6 MG TAB PO SCH (21:00)
[2023-05-19] MEDS ORDERED: EZETIMIBE 10 MG TAB PO SCH (21:00)
[2023-05-19] MEDS: ACETAMINOPHEN 500 MG TAB PO SCH (23:25)
[2023-05-20] MEDS: SODIUM CHLORIDE 0.9% 1,000 ML IV SCH (01:30)
[2023-05-20] MEDS: KETOROLAC TROMETHAMINE 15 MG/ML VIAL IV SCH (04:49)
[2023-05-20] MEDS: ACETAMINOPHEN 500 MG TAB PO SCH (04:50)
[2023-05-20] MEDS: ceFAZolin 2000MG 2,000 MG/15 ML SYR IV SCH (04:57)
--- NOTE | 2023-05-20 07:10 | Orthopedic Progress Note ---
Date of Service May 20, 2023 Assessment & Plan (1) Status post reverse total replacement of right shoulder: Overall he is doing very well. He is not having much pain in the right shoulder. He will be seen by physical therapy today for ambulation and range of motion exercises. He can be discharged home later today. He will follow-up orthopedics in 2 weeks. Subjective Alex was seen and examined at bedside this morning. Overall is doing very well. Is not having much pain in the right shoulder. He was able to get some sleep last night. Has no complaints.. Review of Systems All systems reviewed & are unremarkable except as noted in HPI & below. Physical Exam On physical examination of right shoulder, the dressing is clean and dry. He is wearing his sling as instructed. He has active motion of his hand. The nerve block is still working a little bit. Results & Data Results & Data Laboratory Results . Diagnostic Findings Postoperative x-rays of the right shoulder show the prosthesis to be in anatomic alignment without any evidence of fracture complication, or loosening.. PG Care Time/CCT Total # of Minutes Spent Total Time Spent with Patient: Total time spent is greater than 50% in coordination of care (as documented) at patient's floor/unit and/or counseling patient: Coding Level of Care Code 28744 Post Operative Follow-Up Diagnoses Status post reverse total replacement of right shoulder Z96.611
--- NOTE | 2023-05-20 07:11 | Discharge Summary ---
Date of Service May 20, 2023 Admission HPI (Per Admitting) Titi is a pleasant 67-year-old male who has been dealing with chronic increasing right shoulder pain. He states he has a history of a right rotator cuff repair done by Dr. Gallagher about 2 years ago. He is still dealing with significant pain and weakness of the shoulder. X-rays have shown advanced arthritis and cuff tear arthropathy. After failing extensive conservative treatment, he has elected to proceed with a reverse shoulder arthroplasty. . Admission Exam (Per Admitting) On physical examination of the right shoulder, he has decreased range of motion. He has 4 out of 5 motor strength with full can test and external rotation.. Principal Diagnosis Same as "Discharge Diagnosis" noted below under Discharge Instructions. Discharge Exam On physical examination of right shoulder, the dressing is clean and dry. He is wearing his sling as instructed. He has active motion of his hand. The nerve block is still working a little bit. Discharge Data Procedures Performed Operation Date: 05/19/23 10:00 Actual Procedures p Right Reverse Total Shoulder Arthroplasty(Right) - Mitch Mcneil DO Ordered Studies 05/19/23 05:00 US - OR guided needle [facility] Hospital Course (1) Status post reverse total replacement of right shoulder: On May 19, 2023 Alex arrived at [facility] and underwent a right reverse shoulder replaced without complication. He had a general anesthetic and a right interscalene nerve block. Postoperatively he was placed in a sling and transferred to the general orthopedic floors. His hospital course was uneventful. On postop day #1, his vital signs were stable and his pain was well-controlled. He was able to participate well with physical therapy doing ambulation and range of motion exercises. He was then discharged home. He will follow-up orthopedics in 2 weeks. PG Care Time/CCT Total # of Minutes Spent Total Time Spent with Patient: Total time spent is greater than 50% in coordination of care (as documented) at patient's floor/unit and/or counseling patient: Discharge Plan Discharge Items Patient Disposition: Home - Self-Care Reason For Visit: POST OP Discharge Diagnosis: Right reverse shoulder replacement Activity: Per Instructions section Non-emergency contact: Surgeon Call non-emergency contact if: your wound has increased redness and your wound has increased drainage Follow-up/Referrals: Lazorka,Ashish D., PA-C [Primary Care Provider] - Diet: Regular Addtl Attending Provider Instructions: Activity and Therapy Recommendations: * If you are using [facility] then therapy will be provided at your home until they feel you have accomplished all of your goals. * If you are using [facility] then Physical Therapy will be provided until they feel you are ready to start Outpatient Physical Therapy. * If you are not using home therapy then Outpatient Physical Therapy should start about 3-5 days from your day of surgery. Therapy will last about 8-12 weeks * Wear your sling for 3 weeks, unless otherwise instructed. You may remove your sling to shower and to dress, but otherwise, you should be in your sling at all times, including while sleeping * The shoulder replacement is very stable and you can use your hand while in the sling * You were shown a series of exercises in the hospital. Do these exercises daily including the exercises you were shown in physical therapy. Medications: * Narcotic You will likely be sent home from the hospital with a prescription for the narcotic pain medication that worked best throughout your stay. * Cefadroxil-take the antibiotic twice a day for 10 days to help prevent infection. * Other medications may be prescribed for specific circumstances. If you have any questions, please call the office at . * Resume previous home medications unless otherwise instructed Dressing Care: Leave the Silverlon dressing in place for 7 days. After 7 days you may remove the dressing. If the incision is not draining then you may leave the kirti open to air. If there is a little bit of drainage or if the kirti are getting stuck on your clothing then cover the incision with a dry dressing. The kirti will be removed at your 2 week follow-up appointment. Showering: You may shower with the Silverlon dressing in place. Do not let the shower spray hit the dressing directly. Pat the Silverlon dressing dry. If the dressing becomes wet underneath, then simply remove the dressing. Keep the incision dry until you are 7 days out from the day of surgery. After 7 days you may remove the Silverlon dressing and shower with the kirti exposed. Let soapy water run over the kirti and pat them dry. Do not scrub or soak the incision. Things To Watch For: * Drainage from the incision site that occurs more than one week after your surgery. * Increased redness at the incision site. * Fever above 102 degrees Fahrenheit. * Unusual chest pain or shortness of breath. * Call [facility] at with any of the above problems Follow-Up Visit: Follow-up with Dr. Mcneil's PA (Mitch Mas) 2-3 weeks after your day of surgery. He will remove your kirti and answer any questions. If you have any additional questions or concerns, Dr Mcneil is usually in the office at the same time and will be available An appointment was probably scheduled when you signed-up for surgery in the office. If you have any questions call More detailed instructions as well as Frequently Asked Questions were provided in a folder by our office when you signed-up for surgery. Please review these instructions when you get home. If you have any further questions or concerns, please feel free to call the office at [phone] Pending Studies at Discharge: No Stand-Alone Forms: My [facility] Medications and DC Order Prescriptions: New oxycodone 5 mg Tablet 5 mg PO Q4H PRN (Reason: pain) Qty: 30 0RF cefadroxil 500 mg capsule 500 mg PO BID 10 Days Qty: 20 0RF Continued metoprolol tartrate 25 mg tablet 25 mg PO BID Qty: 180 3RF metformin 500 mg tablet 1,000 mg PO QAM tamsulosin [Flomax] 0.4 mg capsule 0.4 mg PO HS metformin 850 mg tablet 850 mg PO QPM terazosin 5 mg capsule 5 mg PO BID Ozempic 1 mg/dose (4 mg/3 mL) pen injector 2 mg SUBCUT Q7D Patient Comments: patient had to take 05/09/2023 due to not being able to obtain the medication Rx Instructions: take this med every Monday PM aspirin 81 mg Tablet,Delayed Release (Dr/Ec) 81 mg PO HS glipizide 10 mg tablet extended release 24hr 10 mg PO BID albuterol sulfate 90 mcg/actuation HFA aerosol inhaler 2 puff INHALATION Q6H PRN (Reason: Shortness Of Breath Or Wheezing) allopurinol 300 mg tablet 300 mg PO QAM ezetimibe [Zetia] 10 mg tablet 10 mg PO HS omeprazole 40 mg capsule,delayed release(DR/EC) 40 mg PO HS gabapentin 400 mg capsule 400 mg PO HS celecoxib [Celebrex] 200 mg capsule 200 mg PO QAM atorvastatin 80 mg tablet 80 mg PO QAM furosemide [Lasix] 40 mg Tablet 40 mg PO QAM cyanocobalamin (vitamin B-12) [Vitamin B-12] 1,000 mcg Tablet, Sublingual 3,000 mcg SUBLINGUAL QAM Discharge Orders: Discharge Order (Routine); Ordered 05/20/23 Ordered By: Mitch Mcneil Admission Data Admit Date/Time: 05/19/23 14:44 Attending Provider: Mitch Mcneil Admit Provider: Mitch Mcneil Primary Care Provider: Ashish Arias
[2023-05-20] MEDS: DOCUSATE SODIUM 100 MG CAP PO SCH (08:02)
[2023-05-20] MEDS: METOPROLOL TARTRATE 25 MG TAB PO SCH (08:02)
[2023-05-20] MEDS: TERAZOSIN HCL 5 MG CAP PO SCH (08:02)
[2023-05-20] MEDS: INSULIN ASPART PER UNIT CHARGE SC SCH (08:06)
[2023-05-20] MEDS ORDERED: LANTUS PER UNIT CHARGE SC ONE (08:30)
[2023-05-20] MEDS ORDERED: allopurinoL 300 MG TAB PO SCH (09:00)
[2023-05-20] MEDS ORDERED: MULTIVITAMIN TAB PO SCH (09:00)
[2023-05-20] MEDS ORDERED: ATORVASTATIN 40 MG TAB PO SCH (09:00)
[2023-05-20] MEDS ORDERED: FUROSEMIDE 40 MG TAB PO SCH (09:00)
== END 2023-05-20 11:42 | disposition home or self-care (01) ==
LOC: ASU 08:23 → 3E 08:23